=== PATIENT | male | born 1980 | race Caucasian/White ===

== ENCOUNTER 2018-05-31 11:39 | Emergency (ER) | payer MEDICAID, SELFPAY ==
[2018-05-31 11:41] VITALS: BP 121/80; PULSE 98; RESP 18; TEMP 36.4; O2SAT 98; BMI 22.9
--- NOTE | 2018-05-31 11:56 | ED.VISSUMM ---
- ER Visit Summary Date of Service: 05/31/18 Chief Complaint: I think I have a hemorrhoid History of Present Illness: The patient is a 37 M who presents with a painful hemorrhoid. He states he has never had one before. He noticed a painful lump near his anus about a week ago which has become progressively more painful and hard. No history of prior similar symptoms. No abdominal pain. No rectal bleeding. No fevers. Physical Examination: Afebrile vitals are normal Moist mucous membranes Heart regular rate No respiratory distress Abdomen soft nontender nondistended Patient does have an external hemorrhoid which is not thrombosed but is tender Test Results: Not indicated Emergency Department Course and Treatment: Patient advised on supportive care including stool softener for easier bowel movements. He was given a prescription for Anusol. He was advised to follow-up with his primary care physician. He understands to return for worsening symptoms and was discharged home. Treatment Plan: [] Disposition: Discharge Impression: External hemorrhoid This note was generated with [employer] dictation software. It may contain incorrect words, spelling, and punctuation that were not noted in review of the chart prior to signing ED Disposition - Plan for ED Patient: Chief Complaint: General Illness Referrals: Calixto Gr MD [Primary Care Provider] -
--- NOTE | 2018-05-31 11:58 | ED.DEP ---
ED Disposition - Plan for ED Patient: Chief Complaint: General Illness Instructions: ED Hemorrhoids Prescriptions: Hydrocortisone [Proctozone-Hc] 30 gm [place] BID #1 cream..g. Referrals: Calixto Gr MD [Primary Care Provider] -
--- NOTE | 2018-05-31 12:02 | DCINST.ED_ITS ---
ED Disposition - Plan for ED Patient: Chief Complaint: General Illness Instructions: ED Hemorrhoids Prescriptions: Hydrocortisone [Proctozone-Hc] 30 gm [place] BID #1 cream..g. Referrals: Calixto Gr MD [Primary Care Provider] -
== END 2018-05-31 12:15 | disposition home or self-care (01) ==
PROVIDERS: Emergency Provider Emergency Medicine; Family Provider Family Medicine; PCP Family Medicine
DX: K64.4 Residual hemorrhoidal skin tags (principal); Z72.0 Tobacco use
CPT/HCPCS: 99282

== ENCOUNTER 2018-07-05 17:25 | Emergency (ER) | payer MEDICAID, SELFPAY ==
[2018-07-05 17:26] VITALS: BP 108/71; PULSE 82; RESP 18; TEMP 36.6; O2SAT 98; BMI 23.0
--- NOTE | 2018-07-05 18:07 | RAD_ITS ---
STUDY: X-RAY - LUMBAR SPINE REASON FOR EXAM: Male, 37 years old. Low back pain TECHNIQUE: 3 view(s) of the lumbar spine were obtained. COMPARISON: None FINDINGS: Normal lumbar lordosis. There is no substantial scoliosis. There is a normal alignment of the vertebrae. Normal vertebral bodies and endplates. Normal disc space heights. The soft tissue structures are unremarkable. RAD/Lumbar Spine 2 or 3 Views IMPRESSION: Normal x-ray examination of the lumbar spine. Electronically Signed: Charlie Osorio MD at 18:53 EST , Service support ,
--- NOTE | 2018-07-05 18:09 | ED.VISSUMM ---
- ER Visit Summary Date of Service: 07/05/18 Chief Complaint: Back pain History of Present Illness: The patient is a 37 M who states that when he woke this morning he had lower back. He describes it as being centered. Denies any known trauma inciting event that would have resulted in pain. He denies any radicular symptoms. He denies any bowel or bladder dysfunction. No fever no rashes. He denies any IV drug use. No recent weight loss or weight gain. Physical Examination: Afebrile vital signs stable Gen: Well-nourished well-developed Head: Normocephalic atraumatic Eyes: Perrl EOMI ENT: TMs clear no rhinorrhea moist mucous membranes Neck: Supple no lymphadenopathy no JVD nontender CVS: Regular rate rhythm no murmurs normal S1-S2 Respiratory: No distress clear to auscultation bilaterally chest nontender Abdomen: Soft nontender nondistended normal bowel sounds no masses Back: Patient is tender to palpation in the lower lumbar spine both in the midline and in the paraspinal musculature particularly on the left. There is palpable spasm of the left paraspinal musculature Extremity: Nontender no edema Skin: Normal color no rash Neuro: alert orientated ?3 CN II-XII intact normal strength sensation reflexes antalgic gait Psych: Normal affect normal mood Test Results: L spine films were obtained. These were negative. Noted straightening of the curvature. Emergency Department Course and Treatment: Patient received Toradol and Norflex IM here. Oars report was performed. I will write for some [place] Motrin as well as Flexeril. He is to follow-up with primary care return if worsening or concerns. Impression: 1. Acute lumbosacral back pain and muscular spasm This note was generated with [employer] dictation software. It may contain incorrect words, spelling, and punctuation that were not noted in review of the chart prior to signing ED Disposition - Plan for ED Patient: Disposition: Home or Assisted Living Chief Complaint: Back Instructions: ED Spasm Back No Trauma Prescriptions: Hydrocodone Bitart/Apap 5-325 [[place] 5MG-325MG] 1 tab PO Q6H PRN PRN 3 Days #12 tab PRN Reason: Pain Ibuprofen [Motrin] 800 mg PO TID PRN PRN #20 tab PRN Reason: Pain Cyclobenzaprine [Flexeril] 10 mg PO TID PRN #15 tab PRN Reason: Muscle Spasm Additional Instructions: Please follow-up with your new primary care physician regarding your back pain.
[2018-07-05] MEDS: Orphenadrine 60 MG/2 ML Ampul IM (19:01)
[2018-07-05] MEDS: Ketorolac 60 MG/2 ML Vial IM (19:02)
[2018-07-05 19:31] VITALS: BP 113/78; PULSE 63; RESP 16; O2SAT 100
== END 2018-07-05 19:32 | disposition home or self-care (01) ==
PROVIDERS: Emergency Provider Emergency Medicine; Family Provider Family Medicine; PCP Family Medicine
DX: M54.5 Low back pain (principal); M62.830 Muscle spasm of back; Z72.0 Tobacco use
CPT/HCPCS: 72100; 96372; 99282

== ENCOUNTER 2019-02-09 20:44 | Emergency (ER) | payer OTHER, MEDICAID, SELFPAY ==
[2019-02-09 20:45] VITALS: BP 114/69; PULSE 80; RESP 18; TEMP 36.8; O2SAT 98; BMI 23.8
--- NOTE | 2019-02-09 21:37 | ED.VISSUMM ---
- ER Visit Summary Date of Service: 02/09/19 Chief Complaint: Headache History of Present Illness: The patient is a 38 M true migraine headaches. Patient states that he awoke this morning with but not because of his headache. He said he gets up early in the morning to go to work. He got up at 5 AM and a headache behind both eyes today. Says he took Excedrin Migraine he was feeling somewhat better than the headache came back worse at 4 PM. He denies any falls or trauma. He denies any fever or sinus drainage or congestion. He denies any history of intracranial bleeds. He has had headaches like this before. Physical Examination: Young male no acute distress. Darkened room. Vital signs are stable afebrile initial blood pressure 114/69. He does not look septic or toxic. HEENT exam pupils round reactive light. He is photophobic. No signs of trauma to his face or scalp. Extra motions are intact. No facial droop. Normal speech. Neck nontender no meningismus. Able to touch chin to chest. No lymphadenopathy. Lungs clear to auscultation bilaterally. Heart regular rhythm no murmur rate about 80. Abdomen soft and nontender. Moving all 4 extremities. Neurovascular intact. 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 Dorsi plantarflexion intact. Neurologically is awake and alert. His NIH score is 0. Fingertip to nose and [id number] all within normal limits. He has no focal neurological or sensory findings. He has a normal neurologic exam. Test Results: None Emergency Department Course and Treatment: Historically and clinically and by exam his headache appears to be a migraine. Will be treated with IV fluids, Toradol, Phenergan and Benadryl and reassess. Repeat exam at 22:50 PM patient is doing well. Headache is almost resolved. Neurologic exam remains normal. NIH is 0. Normal speech. No facial droop. 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 Normal fingertip to nose. He feels and clinically looks much better. Treatment Plan: Imitrex as needed. Fluids and rest. Return if worse. Follow-up as needed. Disposition: Discharge Impression: Acute cephalgia History of migraine headaches This note was generated with [employer] dictation software. It may contain incorrect words, spelling, and punctuation that were not noted in review of the chart prior to signing ED Disposition - Plan for ED Patient: Referrals: Hermann Hernandez MD [Primary Care Provider] -
[2019-02-09] MEDS: Ketorolac 30 MG/ML Syringe IV (21:58)
[2019-02-09] MEDS: 0.9% Normal Saline 1,000 ML 1000 ML IV (21:58)
[2019-02-09] MEDS: DiphenhydrAMINE 50 MG/ML Syringe 25 MG IV (21:59)
[2019-02-09] MEDS: proMETHazine 25 MG/ML Syringe 12.5 MG IV (21:59)
--- NOTE | 2019-02-09 23:11 | ED.DEP ---
ED Disposition - Plan for ED Patient: Disposition: Home or Assisted Living Instructions: ED Headache Migraine Prescriptions: Sumatriptan Succinate [Imitrex] 50 mg PO PRN PRN #10 tab PRN Reason: Headache Referrals: Hermann Hernandez MD [Primary Care Provider] - 3-5 Days if not improving Additional Instructions: Imitrex as needed. Excedrin Migraine as needed. Plenty of fluids and rest. Follow-up with your doctor if not improving return if worse.
[2019-02-09 23:39] VITALS: BP 118/76; PULSE 70; RESP 21; O2SAT 98
== END 2019-02-09 23:28 | disposition home or self-care (01) ==
PROVIDERS: Emergency Provider Emergency Medicine; Family Provider Family Medicine; PCP Family Medicine
DX: G43.909 Migraine, unspecified, not intractable, without status migrainosus (principal); Z72.0 Tobacco use
CPT/HCPCS: 96361; 96374; 96375; 99285; J7030; A4216

== ENCOUNTER 2019-09-20 15:58 | Emergency (ER) | payer MEDICAID, SELFPAY ==
[2019-09-20 15:59] VITALS: BP 137/74; PULSE 98; RESP 16; TEMP 36.8; O2SAT 99; BMI 24.4
--- NOTE | 2019-09-20 16:10 | ED.VISSUMM ---
- ER Visit Summary Date of Service: 09/20/19 Chief Complaint: Laceration History of Present Illness: The patient is a [address] Hernandez. Reports that just prior to coming to the emergency department he cut his right small finger on a piece of sheet metal at home. He denies any pain or paresthesias. He is right-hand dominant. His tetanus is up-to-date. Physical Examination: Vitals: Stable. Afebrile. General: Well-nourished and well-developed. Head: Normocephalic atraumatic. Neck: Supple, no lymphadenopathy. No JVD. Nontender. Cardiovascular: Regular rate and rhythm. No murmurs. Respiratory: No respiratory distress. Clear to auscultation bilaterally. Abdominal: Soft, nontender, nondistended, normal bowel sounds. No guarding, rebound, or peritoneal signs. Back: Nontender. Extremities: Distal phalanx of right small finger on the palmar surface shows a 1 cm superficial flap laceration with no active bleeding.. Skin: Normal color, no rash. Neurologic: Alert and oriented ?3. Cranial nerves II through XII are intact. Normal strength and sensation. Psych: Normal affect. Emergency Department Course and Treatment: I had a prolonged discussion with the patient that the skin from this flap is not viable tissue. It will be left in place to act as an anatomic Band-Aid. The wound was cleansed and a dressing was placed. Treatment Plan: Patient is instructed to keep the area clean and covered. Follow-up his primary care physician 1 week if not improving. Return to the emergency department for any worsening symptoms. Disposition: To home in improved and stable condition. Impression: 1. Laceration right small finger, 1 cm, not repaired. This note was generated with [employer] dictation software. It may contain incorrect words, spelling, and punctuation that were not noted in review of the chart prior to signing ED Disposition - Plan for ED Patient: Disposition: Home or Assisted Living Instructions: LACERATION, Small/superficial, Not sutured Referrals: Hermann Hernandez MD [Primary Care Provider] - 1 Week if not improving
[2019-09-20 16:19] VITALS: PULSE 92; RESP 16; O2SAT 98
== END 2019-09-20 16:21 | disposition home or self-care (01) ==
PROVIDERS: Emergency Provider Emergency Medicine; PCP Family Medicine
DX: S61.216A Laceration without foreign body of right little finger without damage to nail, initial encounter (principal); W26.8XXA Contact with other sharp object(s), not elsewhere classified, initial encounter; Y93.9 Activity, unspecified; Y92.009 Unspecified place in unspecified non-institutional (private) residence as the place of occurrence of the external cause; Z72.0 Tobacco use
CPT/HCPCS: 99282

== ENCOUNTER 2020-10-31 01:23 | Emergency (ER) | payer BC, MEDICAID, SELFPAY ==
[2020-10-31 01:23] VITALS: BP 156/99; RESP 82; TEMP 36.7; O2SAT 16; BMI 25.4
--- NOTE | 2020-10-31 01:27 | ED.VIS.GEN ---
History of Present Illness Chief Complaint: Upper Extremity Injury Informant: Patient Narrative: 40-year-old male presenting with left-sided neck and shoulder pain. He states this has been going on for about 6 months. He has not seen his primary care provider for this. Patient states he made an appointment for Thursday but does not feel he can tolerate the discomfort until Thursday. Patient has been taking ibuprofen which makes it tolerable. Patient states that when he wakes up in the morning his pain is the worst but after it loosens up in his shoulder and neck it feels better. He denies paresthesias currently but states he does get weakness in the morning upon awakening. This resolves in minutes. Patient denies chest pain or shortness of breath. Past Medical History - Allergies and Home Meds Allergies/Adverse Reactions: Allergies No Known Allergies Allergy (Verified 10/31/20 01:27) Primary Care Physician: Jose Storm DO [STAFF PHYSICIAN] - Hermann Hernandez MD [Primary Care Provider] - Prior records reviewed: Yes Past Medical History: - - Patient denies significant medical history. Surgical History: noncontributory Lives: Spouse/ Significant Other Smoking Status: Current every day smoker Alcohol: None Drugs: None Review of Systems General: Denies: Chills, Fever, Sweats Eyes: Denies: Visual changes - bilaterally, Diplopia ENT: Denies: Rhinorrhea, Sore throat Cardiovascular: Denies: Chest pain, Palpitations Respiratory: Denies: Dyspnea, Cough, Dyspnea on exertion Gastrointestinal: Denies: Abdominal pain, Nausea, Vomiting, Diarrhea, Melena, Hematochezia Genitourinary: Denies: Dysuria, Hematuria, Frequency Musculoskeletal: Reports: Neck pain - Left-sided neck pain, Extremity Pain - Left shoulder pain Skin: Denies: Rash, Abscess Neurological: Denies: Headache, Weakness Psych: Denies: Depression, Anxiety Physical Exam Vital Signs/Narrative: Vital Signs Temp Resp BP Pulse Ox 10/31/20 01:23 98.1 F 82 H 156/99 H 16 General: Well nourished, Well developed, No Acute Distress Head: Normocephalic, Atraumatic Eyes: Perrl, EOMI ENT: Moist mucous membranes, No rhinorrhea Neck: - - Mild tenderness to palpation left trapezius. No midline spinal deformities or step-off. No midline tenderness. Head turning to the right exacerbates pain in the left shoulder. Cardiovascular: Regular rate, Regular rhythm, No murmurs Respiratory: No distress, CTA bilaterally, Chest nontender Extremities: Tenderness - Tenderness to palpation of her left shoulder girdle. No pain in the clavicle. Full range of motion actively and passively. 5/5 motor strength. Left arm neurovascularly intact. Skin: Normal color, No rash Neurological: Alert, Oriented x3, Cranial nerves II-XII grossly intact Psychological: Normal affect, Normal Mood Diagnostic/Tx/Re-eval Clinical Impression(s) from Imaging Studies Cervical Spine X-Ray 10/31/20 01:33 IMPRESSION: Degenerative changes with mild reversal of the normal cervical lordosis Electronically Signed: Adarsh Hein DO at 2:06 EST Tel , Service support , Shoulder X-Ray 10/31/20 01:34 IMPRESSION: Normal x-ray examination of the shoulder. Electronically Signed: Adarsh Hein DO at 2:06 EST Tel , Service support , - Medical Decision Making Patient presenting with left shoulder pain as well as left-sided neck pain. Patient denies any significant injury and noted that this has gotten worse over the last 6 months. Patient was given Norflex, Toradol, prednisone. He had 4 view x-rays of the left shoulder which showed no acute bony abnormality or subluxation as interpreted by myself. X-rays of the cervical spine 5 views were obtained which show degenerative changes at C4, C5, C6 as interpreted by myself. Radiology does agree with both reads. I believe patient's pain in his shoulder is from cervical radiculopathy especially with the numbness he gets in certain positions. Patient will be sent home with Flexeril, Naprosyn, prednisone. Patient was given follow-up with Dr. Storm. He will make his appointment on Thursday for his regular doctor. Patient safe for discharge at this time. Impression: 1. Left shoulder pain 2. Cervical radiculopathy ED Disposition - Plan for ED Patient: Disposition: Home or Assisted Living Instructions: ED Radiculopathy, Cervical, ED Shoulder Pain, Uncertain Cause Prescriptions: Cyclobenzaprine HCl 10 mg PO Q8H PRN PRN #20 tab PRN Reason: pain Prescription Printed Naproxen [Naprosyn] 500 mg PO BID PRN #30 tab Prescription Printed predniSONE tablet 60 mg PO DAILY #15 tab Prescription Printed Referrals: Hermann Hernandez MD [Primary Care Provider] - Jose Storm DO [STAFF PHYSICIAN] -
--- NOTE | 2020-10-31 01:33 | RAD_ITS ---
STUDY: X-RAY - CERVICAL SPINE REASON FOR EXAM: Male, 40 years old. neck pain TECHNIQUE: 5 view(s) of the cervical spine were obtained. COMPARISON: None FINDINGS: Normal anterior atlantoaxial articulation. Normal odontoid process. There is reversal of the normal cervical lordosis. Degenerative disc disease noted at C4-5 and C5-6 The soft tissue structures are unremarkable. RAD/Cerv Spine 2 or 3 Views IMPRESSION: Degenerative changes with mild reversal of the normal cervical lordosis Electronically Signed: Adarsh Hein DO at 2:06 EST Tel , Service support ,
--- NOTE | 2020-10-31 01:34 | RAD_ITS ---
STUDY: X-RAY - LEFT SHOULDER REASON FOR EXAM: Male, 40 years old. shoulder pain TECHNIQUE: 4 view(s) of the shoulder. COMPARISON: None. FINDINGS: Normal glenohumeral articulation. Normal acromioclavicular joint. Normal acromion. Normal humeral head and visualized proximal humerus. The soft tissue structures are unremarkable. Normal visualized pulmonary apex. RAD/Shoulder min 2 Views IMPRESSION: Normal x-ray examination of the shoulder. Electronically Signed: Adarsh Hein DO at 2:06 EST Tel , Service support ,
[2020-10-31] MEDS: Orphenadrine 100 MG Tablet PO (01:55)
[2020-10-31] MEDS: Ketorolac 15 MG/ML Vial IM (01:55)
[2020-10-31] MEDS: predniSONE 20 MG Tablet 60 MG PO (02:43)
[2020-10-31 02:46] VITALS: BP 123/82; PULSE 75; RESP 16
== END 2020-10-31 02:49 | disposition home or self-care (01) ==
PROVIDERS: Emergency Provider Student in an Organized Health Care Education/Training Program; PCP Family Medicine
DX: M25.512 Pain in left shoulder (principal); M54.12 Radiculopathy, cervical region; F17.200 Nicotine dependence, unspecified, uncomplicated
CPT/HCPCS: 72040; 73030; 96372; 99282

== ENCOUNTER 2021-01-04 16:54 | Emergency (ER) | payer BC, MEDICAID, SELFPAY ==
[2021-01-04 16:55] VITALS: BP 139/103; PULSE 100; RESP 16; TEMP 36.8; O2SAT 96; BMI 24.8
--- NOTE | 2021-01-04 17:51 | EX.ED.UPPERE ---
HPI History of Present Illness Chief Complaint: Upper Extremity Injury Informant: patient Onset/Context/Timing Onset: Month(s) (6-7) Context: Gradual Onset Timing: Continuous Quality of Pain: Aching Location: left posterior neck and into L shoulder, upper arm, occasionally into hand Current Severity: Moderate Maximum Severity: Moderate Worsened by: nothing in particular Relieved by: temporarily by prednisone but nothing else helping Associated Symptoms Associated Symptoms: Positive for Parasthesia (in thumb and index finger); Negative for Weakness and Loss of Funtion Narrative Narrative: Patient has been having this pain in his neck and upper arm for some time now, he occasionally gets paresthesias into the thumb and index finger which is relatively new and worse today, he is asking for some help with this and a work note. He states he recently lost his job and his medical insurance, he was trying to get an MRI certified but has not been able to yet. He was put on prednisone 60 mg for 1 week, that did help temporarily several months ago when he was on it, however he felt like he withdrew from it when it ended. [facility] Medical History Hx of psychiatric care (~2012) Home Medications sumatriptan succinate 50 mg PO PRN PRN #10 tab 02/09/19 [Rx Last Taken Unknown] gabapentin 300 mg PO TID 30 Days #89 cap 01/04/21 [Rx Last Taken Unknown] Allergy/AdvReac Type Severity Reaction Status Date / Time No Known Allergies Allergy Verified 01/04/21 16:54 Surgical History (Updated 11/12/20 @ 08:14 by Vanessa Proctor) H/O splenectomy (~1990) Hx of hernia repair (~2018) Social History Smoking Status: Current every day smoker ROS ROS ED Constitutional Constitutional ED: Denies chills or fever(s) Musculoskeletal Musculoskeletal: Reports extremity pain; Denies neck pain Integumentary Denies Abrasions, rash or wounds Neurologic Neurologic: Reports paresthesias; Denies weakness EXAM Physical Exam Const Vital Signs: 01/04/21 16:55 Temperature 98.3 F Temperature Source Oral Pulse Rate 100 Respiratory Rate 16 Blood Pressure 139/103 H Blood Pressure Mean 115 Pulse Ox 96 Oxygen Delivery Method Room Air Positive well nourished and well developed General Appearance ED: well developed and NAD Neck full ROM and supple Back/Spine normal ROM and normal to inspection Neuro oriented x3, no focal motor deficits and no sensory deficits noted Neuro Narrative: Patient states paresthesias come and go and are not currently present Sensorium / Orientation: alert Motor Exam: strength 5/5 throughout Psych mental status grossly normal and thought process normal Skin no wounds Rashes: no rashes MDM MDM MDM Narrative Medical decision making narrative: Patient symptoms are consistent with cervical radiculopathy approximately C5-6. He has not been on gabapentin yet, I think would be reasonable to try that. He was given a prescription as well as an initial dose here and also referred to pain management as they may be able to offer some type of injection for this. Discharge Plan Triage Chief Complaint: Upper Extremity Injury ED Provider: Lalo Hernandez Dx/Rx/DC Orders Clinical Impression: Cervical radiculopathy Instructions: ED Radiculopathy, Cervical Prescriptions: New gabapentin 300 mg capsule 300 mg PO TID 30 Days Qty: 89 RF: 0 No Action sumatriptan succinate 50 MG tablet 50 mg PO PRN PRN (Reason: Headache) Qty: 10 RF: 0 Stand Alone Forms: ED Work / School Excuse Primary Care Provider: Hermann Hernandez Referrals: Cheryle Rodriguez MD [STAFF PHYSICIAN] - (call for appt) Hermann Hernandez MD [Primary Care Provider] - Disposition Disposition: Home, self care
[2021-01-04 18:02] VITALS: RESP 17
[2021-01-04] MEDS: Gabapentin 600 MG Tablet 300 MG PO (18:05)
== END 2021-01-04 18:11 | disposition home or self-care (01) ==
LOC: ED 18:09
PROVIDERS: Emergency Provider Emergency Medicine; PCP Family Medicine
DX: M54.12 Radiculopathy, cervical region (principal); F17.200 Nicotine dependence, unspecified, uncomplicated
CPT/HCPCS: 99282

== ENCOUNTER → 2021-01-15 17:04 | Outpatient (CLI) | payer BC, MEDICAID, SELFPAY ==
[2021-01-04 16:55] VITALS: BMI 24.8
--- NOTE | 2021-01-15 17:06 | MRI_ITS ---
STUDY: MRI CERVICAL SPINE WITHOUT CONTRAST REASON FOR EXAM: Male, 40 years old. LEFT shoulder, arm and hand pain TECHNIQUE: Standardized fat and water weighted pulse sequences were obtained in the sagittal and axial planes. COMPARISON: None FINDINGS: Normal foramen magnum and brainstem-cervical cord junction. Normal craniovertebral junction. Normal anterior atlantoaxial articulation. Normal odontoid process. There is reversal of the normal cervical lordosis. Disc desiccation is present at all levels. C2-3: Normal endplates. Normal disc height and morphology. Normal central canal and intervertebral neural foramina. C3-4: Normal endplates. Normal disc height and morphology. Normal central canal and intervertebral neural foramina. C4-5: Normal endplates. Mild disc space narrowing is present without bulging or herniation of the disc. Normal central canal and intervertebral neural foramina. C5-6: Mild to moderate disc space narrowing is present with a diffuse disc osteophyte complex contributing to mild compression anterior aspect of the cord and mild central canal stenosis. Normal right neural foramen. Mild left foraminal stenosis is present. C6-7: Normal endplates. Normal disc height and morphology. Normal central canal and intervertebral neural foramina. C7-T1: Normal endplates. Normal disc height, signal and morphology. Normal central canal and intervertebral neural foramina. Normal cervical cord. There is no demonstrated cervical cord syrinx cavity. Normal visualized soft tissue structures. MRI/Spine Cervical (Routine) IMPRESSION: 1. Multilevel degenerative changes, as described above. 2. Mild central canal stenosis with compression anterior aspect of the cord at C5-C6 secondary to a disc osteophyte complex Electronically Signed: Shawn Greenwood MD at 23:54 EDT , Service support ,
--- NOTE | 2021-01-15 17:10 | RAD_ITS ---
STUDY: X-RAY - ORBITS REASON FOR EXAM: Male, 40 years old. Pre-MRI clearance -- Hx of metal to eyes TECHNIQUE: 2 view(s) of the orbits were obtained. COMPARISON: None. FINDINGS: Normal bilateral orbits without a metallic orbital foreign body. Normal visualized facial bones. Normal paranasal sinuses. The soft tissue structures are unremarkable. RAD/Orbits for Foreign Body IMPRESSION: No demonstrated metallic orbital foreign body. The patient is cleared for an MRI examination. Electronically Signed: Shawn Greenwood MD at 17:56 EDT , Service support ,
== END ==
PROVIDERS: PCP Family Medicine; Referring Provider Orthopaedic Surgery; Visit Provider Orthopaedic Surgery
DX: M54.12 Radiculopathy, cervical region (principal); M48.02 Spinal stenosis, cervical region; M25.78 Osteophyte, vertebrae
CPT/HCPCS: 70030; 72141

== ENCOUNTER 2021-01-23 10:40 | Emergency (ER) | payer BC, MEDICAID, SELFPAY ==
[2021-01-18 14:59] VITALS: BMI 24.8
[2021-01-23 10:41] VITALS: BP 131/87; PULSE 88; RESP 16; TEMP 36.3; O2SAT 96; BMI 25.5
--- NOTE | 2021-01-23 10:47 | EDS_ITS ---
HPI History of Present Illness Chief Complaint: General Illness Narrative Narrative: Patient presenting for evaluation secondary to an episode of lightheadedness. Patient states that he felt well yesterday, felt well early this morning. He states that he was at work, and had a sudden onset of severe lightheadedness. He describes it as a feeling as if he was going to pass out, felt as if my legs were filled up with water and the rest of my body was hit with needles. He denies that there is any associated chest pain or shortness of breath or palpitations with this. Is never really had any prior similar events. Denies any history of cardiovascular disease hypertension hyperli pidemia. He denies any family history of arrhythmia or sudden cardiac . No DVT or PE risk factors. Patient does get treatment for a bulging disc in his neck and has been on gabapentin over the course of about the last 2 weeks, states that on initiation of that medication he felt a feeling of dizziness but this is distinctly different than that. 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 Review of systems otherwise negative. PFSH PFS Medical History Hx of psychiatric care (~2012) Home Medications sumatriptan succinate 50 mg PO PRN PRN #10 tab 02/09/19 [Rx Last Taken Unknown] gabapentin 300 mg PO TID 30 Days #89 cap 01/04/21 [Rx Last Taken Unknown] Allergy/AdvReac Type Severity Reaction Status Date / Time No Known Allergies Allergy Verified 01/23/21 10:43 Surgical History H/O splenectomy (~1990) Hx of hernia repair (~2018) Social History Smoking Status: Current every day smoker tobacco type: cigarettes ROS ROS ED Constitutional Constitutional ED: Denies chills or fever(s) ENT ENT ED: Denies rhinorrhea Cardiovascular Cardiovascular: Reports other Details: Lightheadedness ; Denies chest pain Respiratory/Chest Respiratory/Chest: Denies cough or dyspnea Gastrointestinal Gastrointestinal: Denies abdominal pain, diarrhea, nausea or vomiting Genitourinary Genitourinary ED: Denies dysuria or hematuria Musculoskeletal Musculoskeletal: Denies back pain Integumentary Denies rash Neurologic Neurologic: Denies paresthesias or weakness Psychiatric Psychiatric: Denies depression Endocrine Endocrinology: Denies fatigue Allergic/Immunologic Allergic/Immunologic ED: Denies urticaria EXAM Physical Exam Const Vital Signs: 01/23/21 10:41 01/23/21 10:50 01/23/21 11:34 Temperature 97.3 F L Temperature Source Temporal Pulse Rate 88 Pulse Rate [Lying] 70 Pulse Rate [Sitting] 82 Pulse Rate [Standing] 77 Respiratory Rate 16 Respiratory Effort Normal Non-Labored Blood Pressure 131/87 H Blood Pressure [Lying] 107/78 Blood Pressure [Sitting] 116/84 H Blood Pressure [Standing] 117/84 H Blood Pressure Mean 101 Blood Pressure Mean [Lying] 87 Blood Pressure Mean [Sitting] 94 Blood Pressure Mean [Standing] 95 Pulse Ox 96 Oxygen Delivery Method Room Air Positive well nourished and well developed General Appearance ED: well developed and NAD HEENT Reports moist mucous membranes Negative for trauma or tenderness Eyes EOMs intact bilaterally Neck no lymphadenopathy, supple and no JVD Chest Wall inspection of chest normal Resp normal respiratory effort and clear to auscultation bilaterally Cardio regular rate, regular rhythm, no murmurs and peripheral pulses 2+ throughout GI normal to inspection, nondistended, normoactive bowel sounds, non-tender and no masses Palpation: soft Back/Spine normal to inspection Extremity normal to inspection General Extremety ED: Negative for tenderness Neuro oriented x3 and no sensory deficits noted Sensorium / Orientation: alert Motor Exam: strength 5/5 throughout Psych mental status grossly normal Skin no rashes or lesions noted MDM MDM MDM Narrative Medical decision making narrative: Patient presented secondary to lightheadedness. IV established laboratory studies were obtained. He was given a liter normal saline. EKG was found to be unremarkable. CBC chemistry and troponin found to be unremarkable. Patient had stable vitals in the emergency department, he is negative per the [place] syncope rule, I do not feel that he requires admission or further observation. Patient likewise does not seem to be at risk for pulmonary embolism I do not think that this is something that requires further work-up, he is capital PE RC negative. Patient will be discharged at the conclusion of his IV fluids. Follow-up with primary care as needed. Lab Data Labs: Laboratory Results - last 24 hr 01/23/21 01/23/21 11:05 11:05 WBC 6.6 RBC 4.23 L Hgb 14.0 Hct 40.4 MCV 95.5 H MCH 33.1 H MCHC 34.7 RDW Std Deviation 44.6 H RDW Coeff of [place] 12.7 Plt Count 168 MPV 8.9 Immature Gran % (Auto) 0.300 Neut % (Auto) 65.6 Lymph % (Auto) 25.3 Mcnairy % (Auto) 5.8 Eos % (Auto) 2.7 Baso % (Auto) 0.3 Absolute Neuts (auto) 4.3 Absolute Lymphs (auto) 1.66 Nucleated RBC % 0 Sodium 137 Potassium 4.2 Chloride 107 Carbon Dioxide 29.0 Anion Gap 1 L BUN 10 Creatinine 0.93 Estim Creat Clear Calc 114.70 Est GFR (MDRD) Af Amer 116 Est GFR (MDRD) Non-Af 96 BUN/Creatinine Ratio 10.7 Glucose 97 Calcium 8.9 Troponin I < 0.015 EKG Initial EKG: Attestation: I personally reviewed and interpreted this EKG as follows: (Sinus rhythm at [address] segments normal T waves normal CA and QTc intervals no evidence of WPW or Brugada morphology no evidence of right ventricular strain, no acute ischemia or arrhythmia.) Discharge Plan Triage Chief Complaint: General Illness ED Provider: Artur Stapleton Dx/Rx/DC Orders Clinical Impression: Light-headedness Instructions: ED Dizziness, Uncertain Cause Prescriptions: No Action sumatriptan succinate 50 MG tablet 50 mg PO PRN PRN (Reason: Headache) Qty: 10 RF: 0 gabapentin 300 mg capsule 300 mg PO TID 30 Days Qty: 89 RF: 0 Primary Care Provider: Hermann Hernandez Referrals: Hermann Hernandez MD [Primary Care Provider] - As Needed Disposition Disposition: Home, self care
--- NOTE | 2021-01-23 10:56 | EKG12_ITS ---
Test Reason : GEN ILLNESS Blood Pressure : / mmHG Vent. Rate : 060 BPM Atrial Rate : 060 BPM P-R Int : 166 ms QRS Dur : 094 ms QT Int : 418 ms P-R-T Axes : 069 038 060 degrees QTc Int : 418 ms Normal sinus rhythm Normal ECG Confirmed by BOB DE, ABRAHAM ([id number]), editor in chief newspaper JERI CHAN ([id number]) on 01/24/2021 11:28:20 AM Referred By: AMY/JAZLYN Confirmed By:ABRAHAM ROJAS MD
[2021-01-23 11:12] LABS: Absolute Lymphocyte Count 1.66 X10^3/uL (0.83-4.51); Absolute Neutrophil Count 4.3 X10^3/uL (2.0-7.7); Basophil# 0.02 X10^3/uL; Basophil% 0.3 % (0-1); Eosinophil# 0.18 X10^3/uL; Eosinophils% 2.7 % (0-5); Hematocrit 40.4 % (40-54); Lymphocyte # 1.66 X10^3/ul (0.83-4.51); Lymphocyte % 25.3 % (19-41); Mean Corp Hgb Conc 34.7 g/dL (32-36); Mean Corpuscular Hgb 33.1 pg (27.0-32.0); Mean Corpuscular Volume 95.5 fL (80-94); Mean Platelet Vol. 8.9 fl (6.2-12.0); Monocyte# 0.38 X10^3/uL; Monocyte% 5.8 % (0-10); NRBC Flagged by Analyzer 0 % (0-5); Neutrophil # 4.31 X10^3/uL (2.7-7.7); Neutrophil % 65.6 % (47-70); Platelet Count 168 K/mm3 (150-450); RBC Distribution Width CV 12.7 % (11.6-14.6); RBC Distribution Width SD 44.6 fl (35.1-43.9); Red Blood Count 4.23 M/mm3 (4.6-6.2); White Blood Count 6.6 K/mm3 (4.4-11.0)
[2021-01-23] MEDS: 0.9% Normal Saline 1,000 ML 1000 ML IV (11:13)
[2021-01-23 11:28] LABS: Anion Gap 1 (5-15); BUN 10 mg/dL (7-18); BUN/Creat Ratio 10.7 RATIO (10-20); Calcium,Total 8.9 mg/dL (8.5-10.1); Chloride 107 mmol/L (98-107); Creatinine, Serum 0.93 mg/dL (0.70-1.30); EST Glomerular Filtration Rate 96 mL/min (>60); Est Glom Filt Rate - Afr Amer 116 mL/min (>60); Glucose 97 mg/dL (74-106); Potassium 4.2 mmol/L (3.5-5.1); Sodium Level 137 mmol/L (136-145)
[2021-01-23 11:34] VITALS: BP 107/78; BP 116/84; BP 117/84; PULSE 70; PULSE 77; PULSE 82
[2021-01-23 12:09] VITALS: BP 108/70; PULSE 79; RESP 16; O2SAT 98
== END 2021-01-23 12:11 | disposition home or self-care (01) ==
PROVIDERS: Emergency Provider Emergency Medicine; PCP Family Medicine
DX: R42 Dizziness and giddiness (principal); F17.210 Nicotine dependence, cigarettes, uncomplicated
CPT/HCPCS: 80048; 84484; 85025; 93005; 96360; 99284; J7030; A4216

== ENCOUNTER 2021-09-10 11:12 | Observation (INO) | payer BC, MEDICAID, SELFPAY ==
[2021-01-18 14:59] VITALS: BMI 24.8
--- NOTE | 2021-09-02 09:10 | EKG12_ITS ---
Test Reason : PREOP Blood Pressure : / mmHG Vent. Rate : 079 BPM Atrial Rate : 079 BPM P-R Int : 166 ms QRS Dur : 082 ms QT Int : 376 ms P-R-T Axes : 076 051 074 degrees QTc Int : 431 ms Normal sinus rhythm Normal ECG Confirmed by TISHA DE, IRAJ ([id number]), tape editor CAROL SMITH ([id number]) on 09/06/2021 10:29:25 AM Referred By: Jose Storm Confirmed By:IRAJ GILES MD
[2021-09-02 09:27] LABS: Absolute Lymphocyte Count 1.75 X10^3/uL (0.83-4.51); Absolute Neutrophil Count 3.2 X10^3/uL (2.0-7.7); Basophil# 0.03 X10^3/uL; Basophil% 0.5 % (0-1); Eosinophil# 0.13 X10^3/uL; Eosinophils% 2.4 % (0-5); Hematocrit 43.8 % (40-54); Hemoglobin 15.2 g/dL (13.0-16.5); Lymphocyte # 1.75 X10^3/ul (0.83-4.51); Lymphocyte % 31.9 % (19-41); Mean Corp Hgb Conc 34.7 g/dL (32-36); Mean Corpuscular Hgb 32.8 pg (27.0-32.0); Mean Corpuscular Volume 94.4 fL (80-94); Mean Platelet Vol. 9.2 fl (6.2-12.0); Monocyte# 0.35 X10^3/uL; Monocyte% 6.4 % (0-10); NRBC Flagged by Analyzer 0 % (0-5); Neutrophil # 3.21 X10^3/uL (2.7-7.7); Neutrophil % 58.6 % (47-70); Platelet Count 144 K/mm3 (150-450); RBC Distribution Width CV 12.5 % (11.6-14.6); RBC Distribution Width SD 43.1 fl (35.1-43.9); Red Blood Count 4.64 M/mm3 (4.6-6.2); White Blood Count 5.5 K/mm3 (4.4-11.0)
[2021-09-02 10:01] LABS: Anion Gap 6 (5-15); BUN 13 mg/dL (7-18); BUN/Creat Ratio 12.3 RATIO (10-20); Calcium,Total 9.2 mg/dL (8.5-10.1); Chloride 108 mmol/L (98-107); Creatinine, Serum 1.06 mg/dL (0.70-1.30); EST Glomerular Filtration Rate 83 mL/min (>60); Est Glom Filt Rate - Afr Amer 100 mL/min (>60); Glucose 81 mg/dL (74-106); Potassium 3.7 mmol/L (3.5-5.1); Sodium Level 142 mmol/L (136-145)
[2021-09-02 10:11] LABS: Magnesium 2.3 mg/dL (1.6-2.6)
[2021-09-02 10:44] LABS: HIV - WCH Non-Reactive (Nonreactive); Hepatitis B Surface Antibody Non-Reactive
[2021-09-02 10:51] LABS: Hepatitis C Antibody REACTIVE (Nonreactive)
[2021-09-03 17:38] LABS: Hepatitis A AB, Total Negative (Negative)
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
[2021-09-10] VITALS (16 sets, daily range): BP systolic 87–130; BP diastolic 59–80; PULSE 61–93; RESP 16–18; TEMP 36.2–36.7; O2SAT 94–100; BMI 23.3
[2021-09-10] MEDS: Lactated Ringers 1,000 ML 15 ML IV ×2 (06:20→09:30)
[2021-09-10] MEDS: dexAMETHasone 10 MG/ML Vial 8 MG IV (06:21)
[2021-09-10] MEDS: Acetaminophen 500 MG Tablet 1000 MG PO ×2 (06:25→18:27)
--- NOTE | 2021-09-10 07:30 | DISC_PTH ---
PATIENT: CHAU ELLISON III LOC: MS2 U#:[id number] AGE/SX: 41/M ROOM: [facility] RE09/10/[address]: Dr. Taz Garcia DO : 1980 BED: 1 DIS: 09/11/2021 SPEC #: [id number] RECD: 09/10/21 12:48 STATUS: DAYANARA REKaterina #: [id number] HONORIO: 09/10/21 07:[address]: Jose Storm DEPT: SURGICAL PATHOLOGY RECD BY: Martine Bond ENTERED: 09/10/21 13:05 SP TYPE: DISC OTHR DR: MD Dr. Hermann Soria MD Tissues: Intervertebral disc, NOS Procedures: Surgery Specimen Level III HEADER OPERATION: ERAS, anterior cervical disc fusion C5-6, C6-7 PRE-OP DIAGNOSIS: Herniated nucleus pulposus, cervical TISSUE SUBMITTED: Cervical disc C5-6 and C6-7 MICROSCOPIC DIAGNOSIS Cervical disc C5-6 and C6-7: Fragments of fibrocartilaginous tissue and fibroconnective tissue with focal degenerative changes. TOÑA:jimmie 09/11/2021 MICROSCOPIC DESCRIPTION Slides are reviewed. GROSS DESCRIPTION Received in fixative is one container labeled with the patient's name and designated cervical disc C5-6 and C6-7. The specimen consists of multiple pieces of rodriguez, indurated tissue that in aggregate measure 4 x 5 x 1.5 cm. Focusing Machine Operator tissue is submitted in two cassettes. / TOÑA:jimmie 09/10/2021 TC:5 CPT: 12248
--- NOTE | 2021-09-10 08:00 | RAD_ITS ---
STUDY: X-RAY - CERVICAL SPINE REASON FOR EXAM: Male, 41 years old. ANTERIOR DISC FUSION C5-6, C6-7,LEFT TECHNIQUE: 1 view(s) of the cervical spine were obtained. COMPARISON: None FINDINGS: The localization instrument is seen along the anterior aspect of the C6 vertebrae overlying the superior endplate. RAD/Spine 1 View Any Level IMPRESSION: The tip of the localization instrument is seen along the anterior superior aspect of the C6 vertebrae. Electronically Signed: Enrico Guerra MD at 8:36 EST , Service support ,
--- NOTE | 2021-09-10 08:08 | RAD_ITS ---
STUDY: X-RAY - CERVICAL SPINE REASON FOR EXAM: Male, 41 years old. Anterior disc fusion C5-6, C6-7left TECHNIQUE: 1 view(s) of the cervical spine were obtained. COMPARISON: None FINDINGS: The localization instrument is seen along the anterior aspect of the C5-C6 disc. RAD/Spine 1 View Any Level IMPRESSION: The localization instrument is within the anterior aspect of the C5-C6 disc. Electronically Signed: Enrico Guerra MD at 13:15 EST , Service support ,
[2021-09-10] MEDS: THROMBIN (RECOMBINANT) 20,000 UNIT VIAL 20000 UNIT TOPICAL (08:53)
[2021-09-10] MEDS: Heparin 10,000 UNITS/10 ML Vial 10000 UNITS (08:53)
[2021-09-10 10:05] LABS: Bedside Glucose 67 mg/dL (70-110)
--- NOTE | 2021-09-10 10:45 | RAD_ITS ---
STUDY: X-RAY - CERVICAL SPINE REASON FOR EXAM: Male, 41 years old. FUSION C5-6, 6-7 TECHNIQUE: 1 view(s) of the cervical spine were obtained. COMPARISON: Comparison is made with prior radiograph done earlier today. FINDINGS: The patient is status post anterior fusion with plate and screw fixation device and disc placement at the C5-C6 and C6-C7 levels. RAD/Spine 1 View Any Level IMPRESSION: Status post anterior fusion and prosthetic disc placement at the C5-C6 and C6-C7 levels. Electronically Signed: Enrico Guerra MD at 15:25 EST , Service support ,
--- NOTE | 2021-09-10 11:26 | OP.PCM_ITS ---
Report of Operation Date of Procedure: 09/10/21
--- NOTE | 2021-09-10 11:26 | PCM.OPRPT ---
Report of Operation Date of Procedure: 09/10/21
--- NOTE | 2021-09-10 11:28 | OP.PCM_ITS ---
Report of Operation Date of Procedure: 09/10/21 Description of Surgical Findings:: Preoperative diagnosis: Left C7 and C6 radiculopathy secondary to foraminal stenosis C6-7 and C5-6 Postoperative diagnosis: The same Procedures: #1 anterior cervical fusion C6-7 CPT code 54647 #2 application of spine plate C5-C7 CPT code 57835/59 #3 anterior cervical interbody fusion C5-6 CPT code 59701/51 #4 insertion of titanium cage C6-7 CPT code 82401 #5 insertion of titanium cage C5-6 CPT code 68849/51 Surgeon: Dr. Storm Tape Cutting Machine Operator: Barby TABOR Anesthesia: General endotracheal anesthesia administered by [facility] EBL: Less than 30 cc plus BMA of 60 cc Drains: 1/4 inch [place] Complications: None Procedure: Patient was taken to the OR where he was placed in the supine position on the operating table. He was then placed under general endotracheal anesthesia. Lynch catheter was inserted. Neuro monitoring placed there are leads in the patient. A preoperative x-ray was taken with a needle marker and placed to assure that I would start the incision at the correct level. It was marked with a very small laceration using the end of another needle. The right crest and the neck were then prepped and draped in standard fashion. We obtained our bone marrow aspirate first from the right iliac crest. Using a Jamshidi needle the needle was inserted through a small puncture incision using the end of 15 blade and that was then tamped into the bone deep enough to obtain BMA. 60 cc of BMA were easily obtained. This was handed off to the electrophysiology technician in the room that would spin it down from the other cells concentrate the stem cells 8-10 times and given back to us on the OR table. I then made the disc incision on the cervical spine at the predetermined level I curved it from the midline to the edge of the right sternocleidomastoid muscle. Subcutaneous tissues were incised the length of the incision. I then undermined the subcutaneous tissues off of the platysma's cephalad and caudad. Retaining retractors were then put in place and split the platysma longitudinally in line with its fibers using tissue scissors I then was able to identify the plane between the strap muscles and the sternocleidomastoid strap muscles and the tr achea and esophagus were then retracted to the left carotid which was identified to the right given us good access to the precervical fascia I then opened the precervical fascia over the disc space thought to be C5-6. A needle marker was put in place and an intraoperative x-ray was taken to confirm that we were indeed at C5-6. We moved down 1 level to C6-7 and marked it with cautery. I then cauterized the longus coli muscles on either side of the disc base levator then gently off of the disc base with an elevator. The endless belt finisher retractors were then put in place given his good access to the anterior disc at C6-7. I cut the anterior anal annulus with a 15 blade removed that with pituitary rongeurs and removed more nucleus from within the disc base with pituitary rongeurs. I also used angled curettes to remove the cartilage off both endplates and the remaining and posterior annulus note that he had known foraminal stenosis on the left side using the samra bur of the used technique whereby I would burred the uncinate process about the instillation of cold saline this was done repeatedly until it was a very thin shell I then used small angled curettes to remove the shell brought off of the base of the C7 nerve root. Notably were protected throughout the procedure with neuro monitoring. I then checked the foramen was with a nerve hook was found to be quite open. I then removed the remaining cartilage off the endplates with curettes used a bur to expand the posterior aspect just a bit to make more room for the cage. We used the larger of the 2 cage sizes available that was 8 mm tall. This was 6 and 16-1/2 mm wide and 14 mm deep with a 7 degree angle then filled the cage with spongy demineralized bone matrix that was soaked in the patient's current concentrated stem cells mentioned earlier. This was then tamped into place with anesthesia pulling on the head and countersunk 2 to 3 mm. I then moved over instrumentation next level which would be C5-6. Again I cauterized the coli muscles on either side but the endless belt finisher retractors in place giving us good access to the space at C5-6 anteriorly. I then cut the anterior annulus with a 15 blade and removed it and removed more nucleus from within the disc base with the rongeurs. Note that he had some significant spurring anteriorly this was removed with double-action rongeurs and a samra bur then continue to remove nucleus and annulus all the way back to near the posterior longitudinal ligament. Also the cartilage was removed off the endplates. Cannot open the foramen on the left side using the samra bur technique that I described earlier followed by the instillation of cold saline. It was done repeatedly until it was a thin shell that was then removed with small curettes. This decompressed the base of the C6 nerve root on the left side. This level required a 7 mm cage after the trial then filled it again with the demineralized bone matrix that was spongy soft and the patient stem cells and countersunk into the space 2 to 3 mm. A 45 mm plate was used and anteriorly. Note that it was a 6-hole plate and we did add a little lordosis to it with the plate [place]. I once entered a anchoring pin was put in on 1 side at C5-6 followed by the use of an all on the opposite side of C6 that is the left to punch a hole and enter with a 16mm screw this was done at the other 4 corners and the pin was removed and then another 60 mm screw was inserted there given us a total of six 16mm screws. There were 2 in the C5 doing to C6 into into C7. Construct was then viewed with a lateral x-ray was found be quite satisfactory with good position of the plate the screws and both cages amnionic membrane was placed over the plate to prevent adhesions to the trachea and the esophagus. We then began closure after first placing a 1/[address] [place] in [address] the platysma was closed in running fashion with 5-0 Vicryl final closure subcutaneous tissues in interrupted fashion with 5-0 Vicryl a safety pin was placed through the drain to prevent suction into the wound and sterile dressings were applied. Patient was then recovered in the OR moved to his hospital bed and taken to recovery in sat isfactory condition. This is the end of operative summary on Justin Sauceda III. This is Dr. Storm dictating.
[2021-09-10] MEDS: dexAMETHasone 4 MG/ML Vial IV ×2 (12:31→17:55)
--- NOTE | 2021-09-10 14:33 | SUR.PHASEI ---
Dr. Storm paged at [phone] and [phone]. No call back. This nurse called office and spoke with Barby Nash NP regarding patient not being able to tolerate vance catheter. Order given to remove vance at this time. Patient tolerated removal however was uncomfortable and this nurse noted white, thick drainage on catheter during removal. Urine was yellow at insertion and now is pale yellow upon removal of catheter.
[2021-09-10] MEDS: oxyCODONE 5 MG Tablet PO ×2 (15:55→21:51)
[2021-09-10] MEDS: Cefazolin 1 GM/50 ML BAG IV (16:48)
[2021-09-10] MEDS: Morphine 4 MG/ML Syringe IV (19:17)
[2021-09-10] MEDS: Lactated Ringers 1,000 ML 100 ML IV (19:19)
--- NOTE | 2021-09-10 19:29 | PCM.PN.HOSP ---
Subjective Subjective Patient postoperatively does complain of some sore anterior neck and throat, requesting Jell-O as he notes the cold sensation going down his throat feels better and helps improve his discomfort. Patient reports upper extremity and lower extremity sensation intact able to move both upper and lower extremity as well. Patient denies fevers, chills, nausea, emesis, abdominal pain, chest pain or dyspnea. Objective Data Objective Data Vital Signs: Vital Signs Temp Pulse Resp BP Pulse Ox 98 F 93 16 130/80 H 96 09/10/21 19:05 09/10/21 19:05 09/10/21 19:05 09/10/21 19:05 09/10/21 19:05 Oxygen Flow Rate (L/min) 2 Oxygen Delivery Method Room Air Weight: 167 lb 8.821 oz Body Mass Index (BMI) 23.3 Intake & Output: Intake and Output for Last 24 Hours 09/08/21 09/09/21 09/10/21 23:59 23:59 23:59 Intake Total 1265 / 1265 Output Total 850 / 850 Balance 415 / 415 Lab / Micro Data Result Diagrams: 09/02/21 09:01 09/02/21 09:01 Labs: Laboratory Results - last 24 hr 09/10/21 05:54: POC Glucose 67 L Micro: Microbiology 09/02/21 09:01 Swab (Method) Nasal Screen MRSA/MSSA - Final Radiography Diagnostic Testing: Radiology Impression Spine X-Ray 09/10/21 08:00 IMPRESSION: The tip of the localization instrument is seen along the anterior superior aspect of the C6 vertebrae. Electronically Signed: Enrico Guerra MD at 8:36 EST , Service support , Spine X-Ray 09/10/21 08:08 IMPRESSION: The localization instrument is within the anterior aspect of the C5-C6 disc. Electronically Signed: Enrico Guerra MD at 13:15 EST , Service support , Spine X-Ray 09/10/21 10:45 IMPRESSION: Status post anterior fusion and prosthetic disc placement at the C5-C6 and C6-C7 levels. Electronically Signed: Enrico Guerra MD at 15:25 EST , Service support , Physical Exam Narrative Physical Examination: General: Awake, alert, oriented x 3 and cooperative, seated upright in medical surgical bed in no apparent distress. Skin: Normal color, normal turgor, no icterus, no cyanosis, status post recent OR with anterior neck dressing in place, no drainage. HEENT: AT/NC, EOMI, PERRLA, mildly dry MM, anterior neck with dressing in place, no drainage Lungs: CTA bilaterally, moderate effort, mild decrease BL bases, no rales, ronchi or wheezing. Heart: Regular rate and rhythm; no gallop, rub audible. Abdomen: Soft, NTTP, ND, normal BS, no obvious evidence of HSM. Extremities: No cyanosis, clubbing, or edema. Neurological: Patient awake, alert, oriented as noted, cognitive function intact; pupils equally reactive to light and accommodation, cranial nerves II-XII grossly normal, moving all 4 extremities, no focal deficits, strength limited given recent OR with cervical intervention. Psychiatric: Affect appears fatigued, mildly uncomfortable, no acute evidence of depressive or anxiety feelings. Assessment & Plan Assessment/Plan (1) Neural foraminal stenosis of cervical spine: (2) Radiculopathy affecting upper extremity: PLAN: #1. Severe cervical radiculopathy with foraminal stenosis: Failed conservative therapies and treatments, admitted per Dr. Strom for planned left C7-C6 anterior cervical fusion, application spine plate C5-C7, anterior cervical interbody fusion C5-C6, insertion titanium cage C5-7, post-operative pain management, bowel regimen, DVT Prophylaxis, PT/OT/CM per Orthopedic surgery discretion. #2. Anxiety and depression: We will continue patient home bupropion regimen. #3. Former tobacco use: Encourage continued tobacco cessation. #4. History of migraine headaches: Patient triptan continue as needed per primary service. #5. History of hepatitis C: Reported in history, patient notes this was secondary to tattoos and he has undergone treatment, encourage continued outpatient follow-up with GI. #6. Former tobacco use: Encourage continued tobacco cessation. #7. GERD: We will maintain on famotidine. #8. DVT prophylaxis: SCDs, chemoprophylaxis per primary service discretion given recent OR. Charges/Coding Visit Charges Inpatient E&M: 72129 [facility] H[facility] L3
[2021-09-10] MEDS: Famotidine 20 MG Tablet PO (21:51)
--- NOTE | 2021-09-10 22:57 | PCS.PANDOC ---
PANDEMIC DOCUMENTATION INITIATED: Date: 04/15/2021 Time: 190
[2021-09-11] MEDS: Cefazolin 1 GM/50 ML BAG IV (00:43)
[2021-09-11] MEDS: Zolpidem Tartrate 5 MG Tablet PO (00:44)
[2021-09-11] MEDS: dexAMETHasone 4 MG/ML Vial 2 MG IV ×2 (00:44→04:43)
[2021-09-11 00:48] VITALS: BP 111/73; PULSE 77; RESP 16; TEMP 36.7; O2SAT 96
[2021-09-11] MEDS: Morphine 4 MG/ML Syringe IV (04:34)
[2021-09-11] MEDS: Acetaminophen 500 MG Tablet 1000 MG PO (04:35)
[2021-09-11 04:37] VITALS: BP 115/86; PULSE 91; RESP 16; TEMP 36.4; O2SAT 99
--- NOTE | 2021-09-11 04:42 | EKG12_ITS ---
Test Reason : CHEST PAIN Blood Pressure : / mmHG Vent. Rate : 089 BPM Atrial Rate : 089 BPM P-R Int : 170 ms QRS Dur : 086 ms QT Int : 364 ms P-R-T Axes : 062 025 070 degrees QTc Int : 442 ms Normal sinus rhythm Normal ECG When compared with ECG of 02-SEP-2021 09:15, No significant change was found Confirmed by MARIALUISA DE, STEPHAN ([id number]), editor department JERI CHAN ([id number]) on 09/12/2021 1:52:08 PM Referred By: Jose Storm Confirmed By:DAVID ELAM MD
[2021-09-11 08:40] VITALS: BP 118/78; PULSE 84; RESP 18; TEMP 36.9; O2SAT 94
[2021-09-11] MEDS: oxyCODONE 5 MG Tablet PO (09:03)
[2021-09-11] MEDS: buPROPion (XL) 150 MG TABLET.XL PO (09:04)
[2021-09-11] MEDS: Famotidine 20 MG Tablet PO (09:07)
--- NOTE | 2021-09-11 11:42 | PCM.DC ---
Discharge Instructions Follow Up Care Test Results: Test results from this visit will be discussed in further detail at your follow-up appointment, if applicable. Discharge Plan Admission Attending Provider: Taz Garcia Primary Care Provider: Hermann Hernandez Consulting Providers: Marcello Mathews ; Alaina Bhandari Discharge Orders/Prescriptions Prescriptions: No Action bupropion HCl [Wellbutrin XL] 150 mg tablet extended release 24 hr 150 mg PO QPM RF: 0 sumatriptan succinate 50 MG tablet 50 mg PO PRN PRN (Reason: Headache) Qty: 10 RF: 0 ibuprofen 200 mg Tablet 400 mg PO Q8H PRN (Reason: Pain) RF: 0 hydrocodone-acetaminophen 7.5-325 mg tablet 1 tab PO Q6H PRN (Reason: pain) 10 Days Qty: 40 RF: 0 Other Ambulatory Orders: MRSA/SAID SCREEN (PRE SURG) (Routine) Timeframe: 20210321 Facility: [facility] - Location: Laboratory Ordered By: Dr. Jose Storm COVID 19 AG RAPID (RN COLLECT) (Routine) Timeframe: 20210403 Facility: [facility] - Location: Laboratory Ordered By: Dr. Oseas Glass Hepatitis ABC Profile (Routine) Timeframe: 20210321 Facility: [facility] - Location: Laboratory Ordered By: Dr. Jose Storm HIV - [facility] (Routine) Timeframe: 20210321 Facility: [facility] - Location: Laboratory Ordered By: Dr. Jose Storm Magnesium (Routine) Timeframe: 20210327 Facility: [facility] - Location: Laboratory Ordered By: Dr. Oseas Glass Referrals / Follow Up: Hermann Hernandez MD [Primary Care Provider] - Disposition Disposition (needs filled in before D/C Order can be placed): Home, Self Care
--- NOTE | 2021-09-11 11:43 | DS.PCM_ITS ---
Providers Primary Care Physician: Dr. Hermann Hernandez MD Consultations 09/10/21 11:55 Consult: Hospitalist Routine Consulting Provider: Alaina Bhandari Reason for Consult: medical management EMERGENT Consult: No MD Notified: Yes Date Notified: 09/10/21 Time Notified: 19:28 Method of Notification: Text Reason For Visit: ACDIF C5, C6, C7 LT Diagnosis Discharge Diagnosis (1) Neural foraminal stenosis of cervical spine: Status: Acute Code(s): M48.02 - Spinal stenosis, cervical region (2) Radiculopathy affecting upper extremity: Status: Acute Code(s): M54.10 - Radiculopathy, site unspecified Plan: This Dr. Storm obtain discharge summary on Justin Sauceda III. He was admitted yesterday on 09/10/2021 he underwent anterior cervical fusion at C5-6 and C6-7. She tolerated he tolerated the procedure well. On rounds today we change the dressing the drain was removed the incision is healing well. His voice is significantly hoarse probably from traction injury to the right recurrent laryngeal nerve. In all probability this will recover in about 8 weeks. His left arm pain is completely gone and he is very happy about that as I am 2. His swallowing is getting better too. We given directions regarding his activities. He is to start driving in 2 weeks but not before. He will follow me up in the office in 12 days. He knows that he is to have the dressing removed on Thursday and on Thursday he can start showering. In the meantime it has to stay dry. I answered all his questions I will see him again in the office. This is the end of discharge summary and Justin Sauceda. This is Dr. Storm dictating. Medications at Discharge Home Medications sumatriptan succinate 50 mg PO PRN PRN #10 tab 02/09/19 ibuprofen 400 mg PO Q8H PRN 03/21/21 bupropion HCl 150 mg 24 hr tablet, extended release 150 mg PO QPM 07/15/21 hydrocodone 7.5 mg-acetaminophen 325 mg tablet 1 tab PO Q6H PRN 10 Days #40 tab 09/09/21 Weight / BMI Weight Weight: 167 lb 8.821 oz Body Mass Index (BMI) 23.3 ABG / Lab / Microbiology Data Result Diagrams: 09/02/21 09:01 09/02/21 09:01 Microbiology: Microbiology 09/02/21 09:01 Swab (Method) Nasal Screen MRSA/MSSA - Final Radiography Diagnostic Testing: Radiology Impression Spine X-Ray 09/10/21 08:08 IMPRESSION: The localization instrument is within the anterior aspect of the C5-C6 disc. Electronically Signed: Enrico Guerra MD at 13:15 EST , Service support , Spine X-Ray 09/10/21 10:45 IMPRESSION: Status post anterior fusion and prosthetic disc placement at the C5-C6 and C6-C7 levels. Electronically Signed: Enrico Guerra MD at 15:25 EST , Service support , Meaningful Use Info Meaningful Use Diagnoses (Choose all that apply): None applicable Discharge Plan Admission Attending Provider: Taz Garcia Primary Care Provider: Hermann Hernandez Consulting Providers: Marcello Mathews ; Alaina Bhandari Discharge Orders/Prescriptions Prescriptions: No Action bupropion HCl [Wellbutrin XL] 150 mg tablet extended release 24 hr 150 mg PO QPM RF: 0 sumatriptan succinate 50 MG tablet 50 mg PO PRN PRN (Reason: Headache) Qty: 10 RF: 0 ibuprofen 200 mg Tablet 400 mg PO Q8H PRN (Reason: Pain) RF: 0 hydrocodone-acetaminophen 7.5-325 mg tablet 1 tab PO Q6H PRN (Reason: pain) 10 Days Qty: 40 RF: 0 Other Ambulatory Orders: MRSA/SAID SCREEN (PRE SURG) (Routine) Timeframe: 20210321 Facility: [facility] - Location: Laboratory Ordered By: Dr. Jose Storm COVID 19 AG RAPID (RN COLLECT) (Routine) Timeframe: 20210403 Facility: [facility] - Location: Laboratory Ordered By: Dr. Oseas Glass Hepatitis ABC Profile (Routine) Timeframe: 20210321 Facility: [facility] - Location: Laboratory Ordered By: Dr. Jose Storm HIV - [facility] (Routine) Timeframe: 20210321 Facility: [facility] - Location: Laboratory Ordered By: Dr. Jose Storm Magnesium (Routine) Timeframe: 20210327 Facility: [facility] - Location: Laboratory Ordered By: Dr. Oseas Glass Referrals / Follow Up: Hermann Hernandez MD [Primary Care Provider] - Disposition Disposition (needs filled in before D/C Order can be placed): Home, Self Care
[2021-09-11 12:02] VITALS: BP 124/77; PULSE 91; RESP 18; TEMP 36.6; O2SAT 98
--- NOTE | 2021-09-11 12:10 | CASEMGMT ---
PINO DAVIS COMPRESS MACHINE OPERATOR SUSAN to room to meet with patient for initial transition planning/care coordination assessment. PINO DAVIS introduced self and role at [facility]. Pt voices understanding and consents to assessment at this time. Pt sitting up in bed in no distress at this time. Sig Sophie mendoza Dl, @ bedside. Pt is A/O at this time and answers all questions appropriately. Care providers, pharmacy, and demographics verified/updated at this time. PCP: Dr Hernandez Specialists:Dr Storm--ortho Preferred Pharmacy: [facility] Retail Insurance: [place] Prescription Benefit: Yes Living Will/HPOA: Pt does not currently have LW/HCPOA. States would like to complete these and would like for his sig Sophie mendoza to be his HPOA, but does not wish to wait for SW to be available to come in to do them with him before discharge. Pt made aware that he can contact SW as an out-pt and make appt in the future if he decides he would like to talk with someone about this or would like to utilize [facility] social work for advanced directive completion. Pt expresses understanding. LNOK: Sig kellySophie Dl Living Arrangements: Lives w/Sophie in 2-story home. [employer]. One step to enter home. Independent. Transportation: Pt states drives self and states no transportation concerns at this time. Sophie also drives. DME: Denies using any DME and denies needs. Pt wishes to return home and states has no concerns with going home at time of discharge. PLAN: Home w/support of sig Sophie mendoza, and discharge plans in place. Sahil HUNT RN, CM
== END 2021-09-11 12:26 | disposition home or self-care (01) ==
LOC: MS2 09-11 07:03
PROVIDERS: Anesthesiology; Admitting Provider Orthopaedic Surgery; PCP Family Medicine; Referring Provider Orthopaedic Surgery; Visit Provider Internal Medicine
PROC: (CPT 22551; principal; 2021-09-10 07:00)
DX: M50.10 Cervical disc disorder with radiculopathy, unspecified cervical region (principal); M48.02 Spinal stenosis, cervical region; K21.9 Gastro-esophageal reflux disease without esophagitis; Z86.19 Personal history of other infectious and parasitic diseases; G43.909 Migraine, unspecified, not intractable, without status migrainosus; Z79.899 Other long term (current) drug therapy; Z87.891 Personal history of nicotine dependence
CPT/HCPCS: 22551; 22552; 20931; 22853 ×2; 22845; 36415; 72020; 80048; 82962; 83735; 85025; 86703; 86706; 86708; 86803; 87077; 87081; 88304; 88305; 93005; 96361; 96365; 96375; 96376; 99218; 99251; 99406; C1713; J7120; G0378; G0463; J2405

== ENCOUNTER 2021-10-29 21:13 | Emergency (ER) | payer BC, MEDICAID, SELFPAY ==
[2021-10-29 21:13] VITALS: BP 140/92; PULSE 110; RESP 16; TEMP 36.6; O2SAT 98; BMI 23.7
[2021-10-29 21:29] VITALS: BP 132/97; PULSE 101; RESP 16; O2SAT 96
[2021-10-29] MEDS: Ondansetron ODT 4 MG Tablet PO (21:33)
--- NOTE | 2021-10-29 21:36 | EX.ED.DYSGE1 ---
HPI History of Present Illness Chief Complaint: Overdose Informant: patient Onset/Context/Timing Onset: Today Narrative Narrative: Patient presents via private vehicle after overdosing on heroin. Patient reports history of heroin abuse with 6 years of sobriety. He reports today was a hard day as his father who recently had his trailer torn down. He is up to the gas station on the way home from work to get gas and someone offered him heroin. He states he took this after he got home and became unresponsive. He states the next thing he knows paramedics and police were standing around him. He reportedly got 2 doses of Narcan and woke up. He signed off at the scene and refused transport, but states he was told that as the Narcan wears off he could go down again. This made him nervous and he presented for evaluation. He presents an hour and a half after he was given Narcan. [facility] Medical History Former smoker Gastric reflux History of hepatitis C History of steroid therapy Hx of psychiatric care (~2012) Injury of head and neck Migraine headache Home Medications ibuprofen 400 mg PO Q8H PRN 03/21/21 [History Last Taken Unknown] Allergy/AdvReac Type Severity Reaction Status Date / Time No Known Allergies Allergy Verified 10/29/21 21:16 Surgical History H/O splenectomy (~1990) Hx of hernia repair (~2018) Social History Smoking Status: Former smoker ROS ROS ED Constitutional Constitutional ED: Denies chills or fever(s) Eyes Eyes: Denies change in vision ENT ENT ED: Denies sore throat Cardiovascular Cardiovascular: Denies chest pain Respiratory/Chest Respiratory/Chest: Denies cough or dyspnea Gastrointestinal Gastrointestinal: Reports nausea; Denies abdominal pain, diarrhea or vomiting Genitourinary Genitourinary ED: Denies dysuria Musculoskeletal Musculoskeletal: Denies back pain Integumentary Denies rash Neurologic Neurologic: Denies headache(s) or weakness Psychiatric Psychiatric: Reports anxiety; Denies depression Allergic/Immunologic Allergic/Immunologic ED: Denies urticaria EXAM Physical Exam Const Vital Signs: 10/29/21 21:13 10/29/21 21:29 Temperature 97.8 F Temperature Source Temporal Pulse Rate 110 H 101 H Respiratory Rate 16 16 Blood Pressure 140/92 H 132/97 H Blood Pressure Mean 108 108 Pulse Ox 98 96 Oxygen Delivery Method Room Air Room Air Positive well nourished and well developed General Appearance ED: well developed HEENT Reports moist mucous membranes Eyes PERRL and EOMs intact bilaterally Neck supple Chest Wall inspection of chest normal and palpation of chest normal Resp normal respiratory effort and clear to auscultation bilaterally Cardio regular rate and regular rhythm GI non-tender Auscultation: hypoactive bowel sounds Palpation: soft Extremity normal to inspection Neuro oriented x3 Sensorium / Orientation: alert Psych Mood & Affect: tearful Skin no rashes or lesions noted MDM MDM MDM Narrative Medical decision making narrative: Patient placed on playground monitor. Patient given Zofran ODT for nausea. Treatment and Re-Evaluation Comments:: Patient has been observed to a point of 2 hours after Narcan was given. Vital signs are stable. Patient was seen by social work and resources provided for him for support. He denies suicidal or homicidal ideation. With patient having one single episode of drug use after being sober for 6 months he would not qualify for a detox program. Return instructions are provided. Discharge Plan Triage Chief Complaint: Overdose ED Provider: Gilma Wheat Dx/Rx/DC Orders Clinical Impression: Overdose of heroin Instructions: ED Overdose, Opiate Prescriptions: No Action ibuprofen 200 mg Tablet 400 mg PO Q8H PRN (Reason: Pain) RF: 0 Stand Alone Forms: ED Work / School Excuse Primary Care Provider: Hermann Hernandez Referrals: Hermann Hernandez MD [Primary Care Provider] - [facility] [STAFF PHYSICIAN] - As Needed Disposition Disposition: Home, Self Care
--- NOTE | 2021-10-29 21:48 | CM.ED ---
SW Note Referral Source: MD Referral Reason: Patient came to the ED after overdosing on heroin after 6 years of being sober SW met with patient. Patient said that he has been sober for 6 years. Patient became sober when he went to local assisted and from there he went to intermediate. Patient said that his overdose tonight was a momentary loss of judgement. Patient remorseful about throwing away his soberity. SW provided emotional support. Patient was previously linked with [employer] [facility] but not currently linked. 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 Patient was advised that [facility] has various supports and programming and SW encouraged him to contact them for support. Patient verbalized understanding. SW also provided patient with a resource book on safety plans related to AOD use. SW asked patient if he wanted the booklet and he said yes. SW also provided patient with treatment navigator phone number and explained their role. Patient denied any SI/HI. SW discussed that [facility] has various programs that can be a support to him related to current grief related to the of his father and his father's residence being torn down today. Patient voiced appreciation for the resources. No further needs or concerns voiced. SW remains available. updated Plan: Resource Provided Nirmala BORGES
[2021-10-29 22:16] VITALS: BP 128/74; PULSE 100; RESP 15; O2SAT 99
[2021-10-29 22:19] VITALS: RESP 16
== END 2021-10-29 22:19 | disposition home or self-care (01) ==
PROVIDERS: Emergency Provider Emergency Medicine; PCP Family Medicine; Visit Provider Emergency Medicine
DX: T40.1X1A Poisoning by heroin, accidental (unintentional), initial encounter (principal); R11.0 Nausea; Z87.891 Personal history of nicotine dependence
CPT/HCPCS: 99284

== ENCOUNTER 2023-01-05 07:01 | Emergency (ER) | payer MEDICAID, SELFPAY ==
[2023-01-05 07:02] VITALS: BP 128/97; PULSE 88; RESP 16; TEMP 36.7; O2SAT 100; BMI 21.8
--- NOTE | 2023-01-05 07:13 | EDS_ITS ---
HPI History of Present Illness Chief Complaint: Back Narrative Narrative: Patient presents with lumbar back pain. 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 He has no other injury. He has no bowel or bladder compromise. No recent fevers or chills. No weakness or paresthesias. No urinary retention symptoms. PFSH PFSH Medical History Former smoker Gastric reflux History of hepatitis C History of steroid therapy Hx of psychiatric care (~2012) Injury of head and neck Migraine headache Home Medications ibuprofen 200 mg tablet 400 mg PO Q8H PRN Pain 03/21/21 [History Last Taken Unknown] naproxen 500 mg tablet (Naprosyn) 500 mg PO BID PRN pain #20 tabs 01/05/23 [Rx Last Taken Unknown] tizanidine 4 mg tablet 4 mg PO Q8H PRN muscle spasticity #20 tabs 01/05/23 [Rx Last Taken Unknown] Allergy/AdvReac Type Severity Reaction Status Date / Time No Known Allergies Allergy Verified 01/05/23 07:02 Surgical History H/O splenectomy (~1990) Hx of hernia repair (~2018) Social History Smoking Status: Current some day smoker tobacco type: cigarettes and e- cigarettes ROS ROS ED ROS Narrative Past medical history: Reviewed, includes prior back pain and history of alcoholism Medications: Reviewed Social history: As above Review of systems: All systems negative except as indicated General: No fever Neck: No neck pain Cardiovascular: No chest pain Respiratory: No shortness of breath or cough Gastrointestinal: No abdominal pain, nausea vomiting or diarrhea Genitourinary: No urinary retention Musculoskeletal: Back pain as in HPI Skin: No rash Neurological: No weakness or paresthesias EXAM Physical Exam Narrative Exam Narrative: Vitals reviewed General: Patient appears in some discomfort HEENT: Moist mucous membranes Neck: Nontender Cardiovascular normal heart rate Respiratory: No respiratory difficulty speaking in full sentences Abdomen: Soft and nontender, there is no suprapubic mass or pain Back: There is some tenderness over the lumbar region, pain is spinal and paraspinal both. Extremities: Moves all extremities without joint pain or signs of trauma Neurological: There is normal plantar flexion and dorsiflexion of both feet and great toes. Patellar and Achilles reflexes are normal. Normal strength and sensation. Negative straight leg test. Skin: No rash Psychiatric: Slightly anxious. Const Vital Signs: 01/05/23 07:02 Temperature 98.1 F Temperature Source Temporal Pulse Rate 88 Respiratory Rate 16 Blood Pressure 128/97 H Blood Pressure Mean 107 Pulse Ox 100 Oxygen Delivery Method Room Air MDM MDM MDM Narrative Medical decision making narrative: Patient has lumbar back pain. This time he does not have any red flags to warrant an MRI. I thought about x-rays however again he has no trauma other than overuse therefore I do not believe that would be useful. Patient will be treated with muscle relaxers and NSAIDs. Otherwise he will continue to follow proper form when he works and otherwise I believe he can be safely discharged. Discharge Plan Triage Chief Complaint: Back ED Provider: Howard Brenner Dx/Rx/DC Orders Clinical Impression: Back pain, Muscle spasm Instructions: Back Basics: A Healthy Spine Prescriptions: New naproxen [Naprosyn] 500 mg tablet 500 mg PO BID PRN (Reason: pain) Qty: 20 0RF tizanidine 4 mg tablet 4 mg PO Q8H PRN (Reason: muscle spasticity) Qty: 20 0RF No Action ibuprofen 200 mg Tablet 400 mg PO Q8H PRN (Reason: Pain) Primary Care Provider: Hermann Hernandez Referrals: Hermann Hernandez MD [Primary Care Provider] - 3-5 Days Disposition Disposition: Home, Self Care
[2023-01-05 07:32] VITALS: RESP 16
== END 2023-01-05 07:32 | disposition home or self-care (01) ==
PROVIDERS: Emergency Provider Emergency Medicine; PCP Family Medicine; Visit Provider Emergency Medicine
DX: M54.50 Low back pain, unspecified (principal); M62.838 Other muscle spasm; F17.210 Nicotine dependence, cigarettes, uncomplicated
CPT/HCPCS: 99282

== ENCOUNTER 2024-09-09 21:54 | Emergency (ER) | payer MEDICAID, SELFPAY ==
[2024-09-09 21:56] VITALS: BP 162/90; PULSE 97; RESP 18; TEMP 36.8; O2SAT 99; BMI 24.1
--- NOTE | 2024-09-09 22:37 | EDS_ITS ---
HPI History of Present Illness Chief Complaint: Substance Abuse Detail of Chief Complaint: Drug dependency to methamphetamine and fentanyl Informant: patient Onset/Context/Timing Onset: Month(s) and - Context: Sudden Onset Timing: Continuous Quality: Patient uses 1/2 to 1 g of methamphetamine daily and quarter gram of fentan Location: Drug abuser Current Severity: Moderate Maximum Severity: Moderate Worsened by: Dependency Relieved by: Nothing Associated Symptoms Associated Symptoms: Negative for vomiting*, diarrhea*, fever*, rash*, seizure, tremor, palpatations, change in mental status, trauma, sex for drugs*, suicidal ideation, homicidal ideation, other: or *HIV Risk Factors:Consider testing if last test > 6 months Narrative Narrative: Patient is a 44-year-old male. He and his significant other plans on going to detox in July. They broke up. He is using 1/2 g to 1 g of methamphetamine daily and 1/4 g of fentanyl daily. He denies history of HIV or hepatitis. He has never been in a drug rehab program. He was at a [facility]pc house this past summer that was affiliated with [facility]. He presents seeking help per patient. He does admit that he is homeless. He does admit that he smokes. He denies alcohol use. Prior similar symptoms: Yes Recent Illness/Hospitalization: No PFSH [facility] Medical History Former smoker History of steroid therapy History of hepatitis C Injury of head and neck Migraine headache Gastric reflux Hx of psychiatric care (~2012) Home Medications ?Medication ?Instructions ?Recorded ?Last Taken ?Type ibuprofen 200 mg tablet 400 mg PO Q8H PRN Pain 03/21/21 Unknown History naproxen 500 mg tablet (Naprosyn) 500 mg PO BID PRN pain #20 tabs 01/05/23 Unknown Rx tizanidine 4 mg tablet 4 mg PO Q8H PRN muscle spasticity 01/05/23 Unknown Rx #20 tabs Allergy/AdvReac Type Severity Reaction Status Date / Time No Known Allergies Allergy Verified 09/09/24 21:58 Surgical History H/O splenectomy (~1990) Hx of hernia repair (~2018) Social History (Updated 09/09/24 @ 22:[address] Roque Jain MD) household members: none Smoking Status: Current some day smoker tobacco type: cigarettes and e- cigarettes alcohol intake: former substance use type: amphetamines and opiates ROS ROS ED Constitutional Constitutional ED: Denies chills, fever(s), subjective or sweats Eyes Eyes: Denies blurry vision or change in vision ENT ENT ED: Denies rhinorrhea Cardiovascular Cardiovascular: Denies chest pain or palpitations Respiratory/Chest Respiratory/Chest: Denies cough, dyspnea or dyspnea on exertion Gastrointestinal Gastrointestinal: Denies abdominal pain, diarrhea, nausea or vomiting Musculoskeletal Musculoskeletal: Denies arthralgias or myalgias Integumentary Denies rash Neurologic Neurologic: Denies headache(s) or paresthesias Hematologic/Lymphatic Hematologic/Lymphatic: Denies easy bleeding or easy bruising EXAM Physical Exam Const Vital Signs: 09/09/24 21:56 Temperature 98.2 F Temperature Source Oral Pulse Rate 97 Respiratory Rate 18 Blood Pressure 162/90 H Blood Pressure Mean 114 Pulse Ox 99 Oxygen Delivery Method Room Air Positive well nourished and well developed General Appearance ED: well developed and NAD; Negative for pallor HEENT Reports moist mucous membranes atraumatic; Negative for tenderness Eyes PERRL and EOMs intact bilaterally General Eye ED: Negative for pale conjunctiva or scleral icterus Neck supple and no JVD Resp normal respiratory effort and clear to auscultation bilaterally Cardio regular rate, regular rhythm, S1 normal heart sound, S2 normal heart sound and no murmurs Extremity Extremity Narrative: There is no clubbing or cyanosis. Neuro oriented x3 and CN's II-XII intact bilaterally [place] Coma Scale: document GCS findings Spontaneous Obeys Commands Oriented 15 Sensorium / Orientation: alert Speech: speech normal Gait (Neuro): normal gait Psych mental status grossly normal and thought process normal Skin Skin Narrative: Patient has numerous tattoos. General Skin Exam: Negative for jaundice or pallor Lesions: no lesions Rashes: no rashes MDM MDM MDM Narrative Medical decision making narrative: Patient seeking detox from methamphetamine fentanyl. Charge nurse informing that we may not have beds. Prior to ordering tests charge nurse, Gianna, check to see if there is any open beds. Presently there are no open beds. Patient was instructed to call tomorrow and Thursday as well as Thursday. Recommended he return when there is a bed available. Will also have him follow-up with his primary care provider for blood pressure recheck since his blood pressure is elevated 162/90. He has no history of hypertension. Since he is asymptomatic there is no indication for imaging or laboratory testing. Patient was last seen in the emergency room December 2022 for back pain. He has been seen by Dr. Jose Storm for neuroforaminal stenosis of the cervical spine and subsequently underwent surgery. History & Record Review Additional record(s) reviewed:: Prior outpatient record (Dr. Jose Storm's office notes.) and Prior ED visit Discharge Plan Triage Chief Complaint: Substance Abuse ED Provider: Roque Jain Dx/Rx/DC Orders Clinical Impression: Methamphetamine use disorder, mild, S/P cervical spinal fusion, Fentanyl use disorder, mild, abuse, Elevated blood-pressure reading without diagnosis of hypertension Instructions: ED Drug Abuse Prescriptions: No Action ibuprofen 200 mg Tablet 400 mg PO Q8H PRN (Reason: Pain) naproxen [Naprosyn] 500 mg tablet 500 mg PO BID PRN (Reason: pain) Qty: 20 0RF tizanidine 4 mg tablet 4 mg PO Q8H PRN (Reason: muscle spasticity) Qty: 20 0RF Primary Care Provider: Hermann Hernandez Referrals: Hermann Hernandez MD [Primary Care Provider] - 1-2 Weeks [facility] [Non-Staff] - 3-5 Days Activity Restrictions/Additional Instructions: 1. Your blood pressure is elevated in the emergency department. Recommend follow-up with Dr. Hernandez to have your blood pressure checked in 1 to 2 weeks. 2. Presently there are no beds. Recommend calling the ER and ask if there are any beds available on Thursday, Thursday and Thursday. If beds are available please return and we will gladly help you with your dependency on methamphetamine and fentanyl Print Language: Amharic Disposition Disposition: Home, Self Care
== END 2024-09-09 22:52 | disposition home or self-care (01) ==
PROVIDERS: Emergency Provider Emergency Medicine; PCP Family Medicine; Visit Provider Emergency Medicine
DX: F15.90 Other stimulant use, unspecified, uncomplicated (principal); F11.10 Opioid abuse, uncomplicated; R03.0 Elevated blood-pressure reading, without diagnosis of hypertension; F17.210 Nicotine dependence, cigarettes, uncomplicated; F17.290 Nicotine dependence, other tobacco product, uncomplicated; Z98.1 Arthrodesis status; Z59.00 Homelessness unspecified
CPT/HCPCS: 99282

== ENCOUNTER 2024-10-08 06:35 | Emergency (ER) | payer MEDICAID, SELFPAY ==
[2024-10-08 06:37] VITALS: BP 122/74; PULSE 70; RESP 16; TEMP 36.4; O2SAT 98; BMI 22.8
--- NOTE | 2024-10-08 07:32 | EX.ED.VIS.HA ---
HPI History of Present Illness Chief Complaint: Headache Informant: patient Onset/Context/Timing Onset: Yesterday Context: Gradual Timing: Continuous Quality -Headache: Positive for Similar Prior Headaches and Sharp Current Severity: Moderate Maximum Severity: Moderate Associated Symptoms/Injury Associated Symptoms: Positive for Nausea and Photophobia Injury - WALLS: Negative for Direct Trauma, Fall or Assault Narrative Narrative: 44-year-old homeless male history of hep C and migraine headaches. States she has had migraine headaches for years. States that his headache began yesterday morning gradual in onset. Associated with photophobia. Nausea but no vomiting. No fever. He is on no blood thinners. He has had no recent head trauma. Denies any fever. Similar to his prior headaches. Prior similar symptoms: Yes Recent Illness/Hospitalization: No PFSH PFSH Medical History Former smoker History of steroid therapy History of hepatitis C Injury of head and neck Migraine headache Gastric reflux Hx of psychiatric care (~2012) Home Medications ?Medication ?Instructions ?Recorded ?Last Taken ?Type NK 10/08/24 Unknown History Allergy/AdvReac Type Severity Reaction Status Date / Time No Known Allergies Allergy Verified 10/08/24 06:36 Surgical History H/O splenectomy (~1990) Hx of hernia repair (~2018) Social History household members: none Smoking Status: Current every day smoker tobacco type: cigarettes and e-cigarettes alcohol intake: former substance use type: amphetamines and opiates ROS ROS ED ROS Narrative Headache. Nausea. Constitutional Constitutional ED: Denies chills or fever(s) Eyes Eyes: Denies blurry vision, change in vision or diplopia ENT ENT ED: Denies ear pain or rhinorrhea Cardiovascular Cardiovascular: Denies chest pain Respiratory/Chest Respiratory/Chest: Denies cough or dyspnea Gastrointestinal Gastrointestinal: Reports nausea; Denies abdominal pain, constipation, diarrhea, melena or vomiting Genitourinary Genitourinary ED: Denies dysuria or hematuria Musculoskeletal Musculoskeletal: Denies arthralgias Integumentary Denies abscess Neurologic Neurologic: Reports headache(s); Denies paresthesias or weakness Psychiatric Psychiatric: Denies anxiety or depression Endocrine Endocrinology: Denies polydipsia Hematologic/Lymphatic Hematologic/Lymphatic: Denies easy bleeding or lymphadenopathy Allergic/Immunologic Allergic/Immunologic ED: Denies mouth swelling, tongue swelling or urticaria EXAM Physical Exam Narrative Exam Narrative: 44-year-old male playing in bed. Vital signs are stable afebrile. No one else present in the room. He does not look septic or toxic. He is in no distress. He is complaining of photophobia. H EENT exam pupils round reactive light. Moist mucous membranes. No trauma to his face or scalp. Nontender no hematoma. Neck nontender no meningismus. No lymphadenopathy. Back nontender. Lungs clear to auscultation bilaterally. Heart regular rhythm no murmur. Chest wall and ribs nontender. Abdomen soft nontender. Moving all 4 extremities normal strength. Normal range of motion. Neurologically is awake and alert no focal motor deficits. NIH 0. Answering questions and following commands. Const Vital Signs: 10/08/24 06:37 10/08/24 08:36 10/08/24 10:00 Temperature 97.6 F L Temperature Source Oral Pulse Rate 70 71 71 Respiratory Rate 16 17 18 Blood Pressure 122/74 H Blood Pressure Mean 90 Pulse Ox 98 99 98 Oxygen Delivery Method Room Air Room Air Positive well nourished and well developed; Negative for obese, cachectic, contractures or unkempt General Appearance ED: well developed and NAD; Negative for unkempt, cachectic, contractures, cyanotic or diaphoretic Nutritional Appearance: Negative for cachectic or obese HEENT Reports normocephalic and moist mucous membranes; Denies dry mucous membranes atraumatic; Negative for trauma, tenderness, temporal artery tenderness or vesicular rash Face and Sinus: Negative for sinus tenderness Mouth ED: No dry mucous membranes Mouth: No dry mucous membranes Eyes PERRL and EOMs intact bilaterally General Eye ED: Negative for pale conjunctiva or scleral icterus Neck no lymphadenopathy, supple, no meningeal signs and no JVD General: Negative for tenderness Resp normal respiratory effort and clear to auscultation bilaterally Effort and Inspection: Negative for retractions Auscultation: Negative for rales, rhonchi, wheezes or diminished lung sounds Cardio regular rate, regular rhythm, S1 normal heart sound, S2 normal heart sound and no murmurs Rate: Negative for bradycardia or tachycardic Rhythm: Negative for abnormal rhythm GI non-tender and non-distended Auscultation: normoactive bowel sounds Palpation: soft; Negative for firm, tender, guarding, rigid, hepatomegaly, splenomegaly, mass or other Back/Spine no CVA tenderness General Back: Negative for CVA tenderness Cervical Spine: Negative for cervical spine tenderness Thoracic Spine / Upper Back: Negative for thoracic spinal tenderness Lumbar Spine / Lower Back: Negative for lumbar spinal tenderness Extremity normal to inspection and full ROM General Extremety ED: Negative for edema or tenderness General Extremity: Negative for edema Neuro oriented x3 and CN's II-XII intact bilaterally Sensorium / Orientation: awake, alert, oriented to person, oriented to place and oriented to time; Negative for orientation impaired, lethargic or stuporous Coordination / Balance: [id number] test normal Speech: speech normal Motor Exam: strength 5/5 throughout Psych mental status grossly normal Appearance: Negative for unkempt Mood & Affect: Negative for anxious Skin Skin Narrative: No rashes. Multiple tattoos. Lesions: no lesions Rashes: no rashes MDM MDM MDM Narrative Medical decision making narrative: 44-year-old male history of migraines. Normal exam. Normal neurologic exam. To be treated with IV fluids, Toradol Benadryl and Zofran and reassess. I do not feel he needs any imaging. Repeat exam at 10:35 AM patient is doing well. Headache is resolved. He is feeling much better. His neurologic exam is normal. He is comfortable being discharged. History & Record Review Discussion w/independent historian: Patient Additional record(s) reviewed:: Prior inpatient record, Prior ED visit and Prior labs Discharge Plan Triage Chief Complaint: Headache ED Provider: Refugio Cole Dx/Rx/DC Orders Clinical Impression: Migraine headache Instructions: ED Headache Unspecified Prescriptions: No Action NK Primary Care Provider: Hermann Hernandez Referrals: Hermann Hernandez MD [Primary Care Provider] - 3-5 Days if not improving Activity Restrictions/Additional Instructions: Plenty of fluids and rest. Alternate Tylenol and Motrin for headache. Follow-up with your primary care provider if not improving or return if worse. Print Language: Belarusian Disposition Disposition: Home, Self Care
[2024-10-08] MEDS: Ketorolac 30 MG/ML Syringe IV (08:12)
[2024-10-08] MEDS: Ondansetron 4 MG/2 ML Vial IV (08:12)
[2024-10-08] MEDS: DiphenhydrAMINE 50 MG/ML Syringe IV (08:12)
[2024-10-08] MEDS: 0.9% Normal Saline (500mL Bag) 500 ML 1000 ML IV (08:12)
[2024-10-08 08:36] VITALS: PULSE 71; RESP 17; O2SAT 99
[2024-10-08 10:00] VITALS: PULSE 71; RESP 18; O2SAT 98
--- NOTE | 2024-10-08 10:44 | ED.RN ---
PT REFUSED TO UNCOVER HIS FACE WHEN THIS NURSE CAME INTO THE ROOM TO GO OVER D/C PAPERWORK AND D/C IV. WHEN I TOLD PT HE IS GOOD TO GO, HE ASKED IF HE COULD LAY THERE A FEW MINUTES AND I STATED NO YOU ARE ALL SET AND WE NEED TO OPEN THE ROOMS FOR OTHER PTS NEEDING A BED. PT CUSSED AT NURSE AND WAS UPSET ABOUT NEEDING TO LEAVE
== END 2024-10-08 10:46 | disposition home or self-care (01) ==
PROVIDERS: Emergency Provider Emergency Medicine; PCP Family Medicine; Visit Provider Emergency Medicine
DX: G43.909 Migraine, unspecified, not intractable, without status migrainosus (principal); F17.210 Nicotine dependence, cigarettes, uncomplicated; F17.290 Nicotine dependence, other tobacco product, uncomplicated
CPT/HCPCS: 96374; 96375; 96376; 99284; A4216; J2405

== ENCOUNTER 2024-12-01 18:37 | Emergency (ER) | payer MEDICAID, SELFPAY ==
[2024-12-01 18:39] VITALS: BP 131/91; PULSE 104; RESP 15; TEMP 36.8; O2SAT 99; BMI 22.9
[2024-12-01] MEDS: Ondansetron ODT 4 MG Tablet PO (18:45)
--- NOTE | 2024-12-01 18:47 | EDS_ITS ---
HPI History of Present Illness Chief Complaint: Overdose Narrative Narrative: Patient is a 44-year-old male with past medical history of of substance abuse, hepatitis C, GERD who presents to the emergency department with a chief complaint of overdose. Patient states that he was trying to do some dope and overdosed on heroin. Per EMS they gave 2 mg intranasally at 6:12 PM. Patient states that he feels nauseous right now and he feels like he has poop. Patient states that he does not want detox. PFSH PFS Medical History Former smoker History of steroid therapy History of hepatitis C Injury of head and neck Migraine headache Gastric reflux Hx of psychiatric care (~2012) Home Medications ?Medication ?Instructions ?Recorded ?Last Taken ?Type NK 10/08/24 Unknown History Allergy/AdvReac Type Severity Reaction Status Date / Time No Known Allergies Allergy Verified 12/01/24 18:38 Surgical History H/O splenectomy (~1990) Hx of hernia repair (~2018) Social History household members: none Smoking Status: Current every day smoker tobacco type: cigarettes and e- cigarettes alcohol intake: former substance use type: amphetamines and opiates ROS ROS ED ROS Narrative Constitutional: Denies any headache, lightness, does, fevers or chills Cardiovascular denies chest pain palpitation Respiratory: No shortness of breath or coughing Abdomen: Complains of nausea as noted above denies vomiting or diarrhea Neurological: Denies any numbness, weakness, tingling Skin: Denies any rashes lesions EXAM Physical Exam Narrative Exam Narrative: General: Patient is lying in bed rest comfortably did not appear to be in acute distress Head: Atraumatic, normocephalic Eyes: PERRL bilateral, EOMI bilateral, no conjunctival injection noted Neck: Soft, supple, trachea midline Cardiovascular: Regular rate and rhythm no murmurs gallops rubs noted Respiratory: Clear to auscultation bilaterally Abdomen: Soft, nondistended, nontender to palpation Extremities: +5/5 strength noted in the bilateral upper and lower extremities Neurological: Patient following commands and that he was at [facility] years 2024 NIH is 0 GCS 15 Skin: Warm, dry, intact no rashes lesions noted Const Vital Signs: 12/01/24 18:39 12/01/24 18:55 12/01/24 19:08 Temperature 98.2 F Temperature Source Oral Pulse Rate 104 H 93 82 Respiratory Rate 15 14 12 Blood Pressure 131/91 H 119/88 H 117/83 H Blood Pressure Mean 104 98 94 Pulse Ox 99 100 100 Oxygen Delivery Method Room Air Room Air Room Air 12/01/24 19:30 Temperature Temperature Source Pulse Rate 76 Respiratory Rate 16 Blood Pressure 117/83 H Blood Pressure Mean 94 Pulse Ox 100 Oxygen Delivery Method Room Air MDM MDM MDM Narrative Medical decision making narrative: Patient is a 44-year-old male who presented to the emergency department via EMS after an overdose on heroin. Patient once again was given intranasal Narcan at 6:12 PM. He will be observed here in the emergency department he is nauseous therefore he will be given ODT Zofran. I did offer him detox and he states that he is not interested. Patient was observed for approximately an hour and a half to an hour 40 minutes and was alert and oriented walking around the room talking on the phone. Patient per nursing staff eloped. Discharge Plan Triage Chief Complaint: Overdose ED Provider: Anurag Jack Dx/Rx/DC Orders Clinical Impression: Overdose Prescriptions: No Action NK Primary Care Provider: Hermann Hernandez Referrals: Hermann Hernandez MD [Primary Care Provider] - Print Language: [place] Disposition Disposition: Elopement Discharge Date/Time: 12/01/24 20:17
[2024-12-01 18:55] VITALS: BP 119/88; PULSE 93; RESP 14; O2SAT 100
[2024-12-01 19:08] VITALS: BP 117/83; PULSE 82; RESP 12; O2SAT 100
[2024-12-01 19:30] VITALS: BP 117/83; PULSE 76; RESP 16; O2SAT 100
--- NOTE | 2024-12-01 20:14 | CM.ED ---
Social work Reason for referral: overdose Referral source: case find This SW identified patient's presentation to [facility] ED due to heroin overdose. Per Dr. Jack's note, patient denied wanting detox upon entry to [facility] ED, so SW entered patient's room with intention of providing resources should patient continue to refuse. SW introduced self and role at [facility] upon entry to patient's room. Patient was observed laying in bed with eyes closed, stating patient had a headache and was still nauseous. Patient stated wanting to detox and enter treatment which was the opposite of what patient had told Dr. Jack earlier. Patient stated wanting treatment, but not wanting treatment in [place] due to [employer] not letting me. Patient clarified that patient has been aggressive and non-compliant resulting in patient's decision to choose [facility] in [facility] instead. Patient stated being willing to stay for detox, but having to take care of business first; patient clarified needing to find a place for patient's dog, Rosa, to go to while patient was away. SW asked if one of patient's emergency contacts would be able to help with finding a safe place for patient's dog and patient stated Thea Zamarripa, patient's ex-girlfriend, would be able to keep the dog, but Thea would not be able to go get the dog because Thea reportedly does not get along well with the people where patient's dog was currently at. Patient requested to speak with Thea on the phone to discuss desire for detox. Patient spoke with Thea on SW's phone (ph: [phone]) and was heard stating, I'll be there shortly. Upon hanging up, patient stated patient was leaving and patient stated patient's intention to go retrieve patient's dog. SW left resources including [employer] card, [employer] brochure, and local food pantries. SW informed machine operator transplanter Sam and Dr. Jack. Patient left [facility] ED without signing AMA paperwork. Lenora Moreno, INTERVENTION ANALYST, REGULATORY AFFAIRS STRATEGY SPECIALIST
--- NOTE | 2024-12-01 20:14 | ED.RN ---
Pt requesting to leave. Advised pt we would get the doc. Pt A&Ox4 and able to walk out of department without problem. Dr. Jack updated.
== END 2024-12-01 20:17 | disposition left against medical advice (07) ==
LOC: ED 19:02
PROVIDERS: Emergency Provider Emergency Medicine; PCP Family Medicine; Referring Provider Emergency Medicine; Visit Provider Emergency Medicine
DX: T40.1X4A Poisoning by heroin, undetermined, initial encounter (principal); F17.210 Nicotine dependence, cigarettes, uncomplicated; F17.290 Nicotine dependence, other tobacco product, uncomplicated
CPT/HCPCS: 99284

== ENCOUNTER 2025-01-12 21:31 | Emergency (ER) | payer MEDICAID, SELFPAY ==
[2025-01-12 21:31] VITALS: BP 138/85; PULSE 88; RESP 15; TEMP 35.7; O2SAT 98; BMI 23.6
[2025-01-12 22:31] VITALS: BP 110/79; PULSE 65; RESP 18; O2SAT 99
[2025-01-12 22:50] LABS: Absolute Lymphocyte Count 1.94 X10^3/uL (0.83-4.51); Absolute Neutrophil Count 3.1 X10^3/uL (2.0-7.7); Basophil# 0.03 X10^3/uL; Basophil% 0.5 % (0-1); Eosinophil# 0.21 X10^3/uL; Eosinophils% 3.7 % (0-5); Hematocrit 35.8 % (40-54); Hemoglobin 12.3 g/dL (13.0-16.5); Lymphocyte # 1.94 X10^3/ul (0.83-4.51); Lymphocyte % 33.9 % (19-41); Mean Corp Hgb Conc 34.4 g/dL (32-36); Mean Corpuscular Hgb 32.8 pg (27.0-32.0); Mean Corpuscular Volume 95.5 fL (80-94); Mean Platelet Vol. 8.2 fl (6.2-12.0); Monocyte# 0.43 X10^3/uL; Monocyte% 7.5 % (0-10); NRBC Flagged by Analyzer 0 % (0-5); Neutrophil # 3.11 X10^3/uL (2.7-7.7); Neutrophil % 54.2 % (47-70); Platelet Count 185 K/mm3 (150-450); RBC Distribution Width CV 12.8 % (11.6-14.6); RBC Distribution Width SD 44.9 fl (35.1-43.9); Red Blood Count 3.75 M/mm3 (4.6-6.2); White Blood Count 5.7 K/mm3 (4.4-11.0)
[2025-01-12 23:06] LABS: ALB/GLOB Ratio 1.7 RATIO (0.9-2.4); AST(SGOT) 17 U/L (<=37); Alanine Aminotransfer ALT/SGPT 9 U/L (<=46); Albumin, Serum 3.7 g/dL (3.5-5.0); Alcohol, Blood (Medical)-Serum < 10.1 mg/dL (<=10.0); Alkaline Phosphatase 74 U/L (40-129); Anion Gap 9 (5-15); BUN 7 mg/dL (4-19); BUN/Creat Ratio 8.3 RATIO (10-20); Calcium,Total 8.7 mg/dL (7.6-11.0); Carbon Dioxide 24.8 mmol/L (21.0-32.0); Chloride 106 mmol/L (98-108); EST Glomerular Filtration Rate 109 (>60); Estimated Creatinine Clearance 113.88 ml/min (50-250); Globulin 2.2 g/dL (2.2-4.2); Glucose 102 mg/dL (70-99); Potassium 4.1 mmol/L (3.3-5.1); Protein, Total 5.9 g/dL (5.9-8.4); Sodium Level 139 mmol/L (133-145); Total Bilirubin 0.28 mg/dL (0.00-1.30)
[2025-01-12 23:16] LABS: Amphetamine Urine PRESUMPTIVE POSITIVE (<1000 ng/mL); Barbiturate Urine NEGATIVE (< 200 ng/mL); Benzodiazepine Urine NEGATIVE (< 200 ng/mL); Buprenorphine Urine NEGATIVE (< 200 ng/mL); Cocaine Urine PRESUMPTIVE POSITIVE (< 300 ng/mL); Fentanyl, Urine PRESUMPTIVE POSITIVE; Methadone Urine NEGATIVE (< 300 ng/mL); Opiates Urine NEGATIVE (< 300 ng/mL); Oxycodone, Urine NEGATIVE (< 100 ng/mL); PCP Urine NEGATIVE (< 25 ng/mL); THC Urine NEGATIVE (< 50 ng/mL)
--- NOTE | 2025-01-12 23:45 | EDS_ITS ---
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 He states that he does methamphetamines and fentanyl. He states that he has used illicit drugs off and on for multiple years. He reports over the last month or so he has been using fentanyl multiple times a day. He states that he injects it. He reports he has been through detox before and has done well staying off the illicit drugs. He states has been a day or 2 since he has done any methamphetamine but reports he did fentanyl roughly 1 hour prior to arrival. He states that he used the fentanyl because he was trying to stop the illicit substance but was developing withdrawal symptoms and therefore took it to curb those. He states he has desire for placement in detox and therefore comes in for evaluation. [facility] Medical History Former smoker History of steroid therapy History of hepatitis C Injury of head and neck Migraine headache Gastric reflux Hx of psychiatric care (~2012) Home Medications ?Medication ?Instructions ?Recorded ?Last Taken ?Type NK 10/08/24 Unknown History Allergy/AdvReac Type Severity Reaction Status Date / Time No Known Allergies Allergy Verified 01/12/25 21:31 Surgical History H/O splenectomy (~1990) Hx of hernia repair (~2018) Social History household members: none Smoking Status: Current every day smoker tobacco type: cigarettes and e- cigarettes alcohol intake: former substance use type: amphetamines and opiates ROS ROS ED Constitutional Constitutional ED: Denies chills or fever(s) ENT ENT ED: Denies sore throat Cardiovascular Cardiovascular: Denies chest pain Respiratory/Chest Respiratory/Chest: Denies cough or dyspnea Gastrointestinal Gastrointestinal: Denies abdominal pain, diarrhea, nausea or vomiting Genitourinary Genitourinary ED: Denies dysuria Musculoskeletal Musculoskeletal: Denies myalgias Integumentary Denies rash Neurologic Neurologic: Denies headache(s) Hematologic/Lymphatic Hematologic/Lymphatic: Denies easy bleeding or easy bruising EXAM Physical Exam Const Vital Signs: 01/12/25 21:31 01/12/25 22:31 Temperature 96.2 F L Temperature Source Temporal Pulse Rate 88 65 Respiratory Rate 15 18 Blood Pressure 138/85 H 110/79 Blood Pressure Mean 102 89 Pulse Ox 98 99 Oxygen Delivery Method Room Air Room Air Positive well nourished and well developed General Appearance ED: well developed; Negative for pallor HEENT HEENT Narrative: Normocephalic atraumatic Eyes PERRL and EOMs intact bilaterally General Eye ED: Negative for scleral icterus Neck supple Neck Narrative: No nuchal rigidity or meningeal signs Resp normal respiratory effort and clear to auscultation bilaterally Cardio regular rate and regular rhythm Rate: other Other Details: Heart is regular rate and rhythm without murmurs rubs or gallops Radial and carotid pulses are equal and symmetric GI non-tender, non-distended and no masses GI Narrative: Abdomen is soft nontender nondistended with hypoactive bowel sounds. No voluntary guarding or rigidity or pulsatile mass Auscultation: hypoactive bowel sounds Palpation: soft Extremity Extremity Narrative: Patient has track andersen in the right antecubital region consistent with a history of IV drug abuse. There are no surrounding secondary changes to suggest infection. No splinter hemorrhages or Janeway lesions noted All compartments are soft and compressible going against compartment syndrome Neuro oriented x3, CN's II-XII intact bilaterally and no sensory deficits noted Sensorium / Orientation: alert Motor Exam: strength 5/5 throughout Psych mental status grossly normal Skin Skin Narrative: Track andersen in the right upper extremity consistent with IV drug abuse without secondary infection General Skin Exam: Negative for jaundice or pallor MDM MDM MDM Narrative Medical decision making narrative: Patient arrived to the ER overall stable vitals. He reported that he has a history of methamphetamine and IV fentanyl abuse. He is seeking detoxification. Secondary to this a medical screening exam was performed. Labs revealed no clinically significant findings such as acute kidney injury acute blood loss anemia electrolyte abnormality or signs of secondary infection. He is positive for fentanyl which correlates with his history. While waiting for the hospitalist to return his page to discuss admission to detox the patient decided he no longer wanted placement and eloped from the hospital. History & Record Review Discussion w/independent historian: Patient Lab Data Attestation: I reviewed the patient's lab results. Labs: Laboratory Results - last 24 hr 01/12/25 01/12/25 22:40 22:56 WBC 5.7 RBC 3.75 L Hgb 12.3 L Hct 35.8 L MCV 95.5 H MCH 32.8 H MCHC 34.4 RDW Std Deviation 44.9 H RDW Coeff of Jordan 12.8 Plt Count 185 MPV 8.2 Immature Gran % (Auto) 0.200 Neut % (Auto) 54.2 Lymph % (Auto) 33.9 [place] % (Auto) 7.5 Eos % (Auto) 3.7 Baso % (Auto) 0.5 Absolute Neuts (auto) 3.1 Absolute Lymphs (auto) 1.94 Nucleated RBC % 0 Sodium 139 Potassium 4.1 Chloride 106 Carbon Dioxide 24.8 Anion Gap 9 BUN 7 Creatinine 0.90 Estim Creat Clear Calc 113.88 Est GFR (MDRD) Non-Af 109 BUN/Creatinine Ratio 8.3 L Glucose 102 H Calcium 8.7 Total Bilirubin 0.28 AST 17 ALT 9 Alkaline Phosphatase 74 Total Protein 5.9 Albumin 3.7 Globulin 2.2 Albumin/Globulin Ratio 1.7 Urine Opiates Screen NEGATIVE U Buprenorphine Qual NEGATIVE Ur Oxycodone Screen NEGATIVE Urine Methadone Screen NEGATIVE Urine Fentanyl Screen PRESUMPTIVE POSITIVE Ur Barbiturates Screen NEGATIVE Ur Phencyclidine Scrn NEGATIVE Ur Amphetamines Screen PRESUMPTIVE POSITIVE U Benzodiazepines Scrn NEGATIVE Urine Cocaine Screen PRESUMPTIVE POSITIVE U Cannabinoids Screen NEGATIVE Ethyl Alcohol < 10.1 Discharge Plan Triage Chief Complaint: Substance Abuse ED Provider: Milton Orozco Dx/Rx/DC Orders Clinical Impression: Polysubstance abuse, S/P cervical spinal fusion Prescriptions: No Action NK Primary Care Provider: Hermann Hernandez Referrals: Hermann Hernandez MD [Primary Care Provider] - Print Language: Italian Disposition Disposition: Elopement Discharge Date/Time: 01/12/25 23:53
--- NOTE | 2025-01-12 23:51 | ED.RN ---
pt seen leaving department. This RN asked if patient wanted to stay and be admitted for detox. Pt stated, Nah, I'm good and left department. Dr. Orozco made aware
== END 2025-01-12 23:53 | disposition left against medical advice (07) ==
PROVIDERS: Emergency Provider Emergency Medicine; PCP Family Medicine; Visit Provider Emergency Medicine
DX: F19.19 Other psychoactive substance abuse with unspecified psychoactive substance-induced disorder (principal); F17.210 Nicotine dependence, cigarettes, uncomplicated; F17.290 Nicotine dependence, other tobacco product, uncomplicated; Z98.1 Arthrodesis status
CPT/HCPCS: 36415; 80053; 80307; 82077; 85025; 99282

== ENCOUNTER 2025-02-14 04:20 | Emergency (ER) | payer MEDICAID, SELFPAY ==
[2025-02-14 04:21] VITALS: BP 136/91; PULSE 107; RESP 16; TEMP 36.5; O2SAT 99; BMI 23.6
[2025-02-14 05:17] VITALS: BP 134/84; PULSE 89; RESP 20; O2SAT 100
[2025-02-14 05:23] VITALS: BP 137/92; PULSE 89; RESP 16; TEMP 36.6; O2SAT 98
[2025-02-14 05:26] LABS: Absolute Lymphocyte Count 1.36 X10^3/uL (0.83-4.51); Absolute Neutrophil Count 3.4 X10^3/uL (2.0-7.7); Basophil# 0.01 X10^3/uL; Basophil% 0.2 % (0-1); Eosinophils% 1.9 % (0-5); Hematocrit 40.2 % (40-54); Hemoglobin 13.8 g/dL (13.0-16.5); Lymphocyte # 1.36 X10^3/ul (0.83-4.51); Lymphocyte % 26.1 % (19-41); Mean Corp Hgb Conc 34.3 g/dL (32-36); Mean Corpuscular Hgb 33.2 pg (27.0-32.0); Mean Corpuscular Volume 96.6 fL (80-94); Mean Platelet Vol. 9.1 fl (6.2-12.0); Monocyte# 0.29 X10^3/uL; Monocyte% 5.6 % (0-10); NRBC Flagged by Analyzer 0 % (0-5); Neutrophil # 3.43 X10^3/uL (2.7-7.7); Neutrophil % 65.8 % (47-70); Platelet Count 203 K/mm3 (150-450); RBC Distribution Width CV 13.6 % (11.6-14.6); RBC Distribution Width SD 48.2 fl (35.1-43.9); Red Blood Count 4.16 M/mm3 (4.6-6.2); White Blood Count 5.2 K/mm3 (4.4-11.0)
[2025-02-14 05:44] LABS: ALB/GLOB Ratio 1.7 RATIO (0.9-2.4); AST(SGOT) 26 U/L (<=37); Alanine Aminotransfer ALT/SGPT 17 U/L (<=46); Albumin, Serum 4.2 g/dL (3.5-5.0); Alcohol, Blood (Medical)-Serum < 10.1 mg/dL (<=10.0); Alkaline Phosphatase 82 U/L (40-129); Anion Gap 12 (5-15); BUN 8 mg/dL (4-19); BUN/Creat Ratio 6.2 RATIO (10-20); Calcium,Total 9.2 mg/dL (7.6-11.0); Carbon Dioxide 26.1 mmol/L (21.0-32.0); Chloride 102 mmol/L (98-108); Creatinine, Serum 1.29 mg/dL (0.70-1.20); EST Glomerular Filtration Rate 71 (>60); Estimated Creatinine Clearance 79.45 ml/min (50-250); Globulin 2.5 g/dL (2.2-4.2); Glucose 184 mg/dL (70-99); Potassium 4.2 mmol/L (3.3-5.1); Protein, Total 6.7 g/dL (5.9-8.4); Sodium Level 140 mmol/L (133-145); Total Bilirubin 0.47 mg/dL (0.00-1.30)
--- NOTE | 2025-02-14 05:52 | EX.ED.DYSGE1 ---
HPI History of Present Illness Chief Complaint: Overdose Informant: patient and EMS Narrative Narrative: Patient is a 44-year-old male with past medical history of hepatitis C and opioid abuse. He states he has used opioids off and on for multiple years. He states that he typically will inject heroin or fentanyl secondary to his addiction. Reported this evening the patient was found unresponsive in a gas station bathroom. EMS reports that he was not pulseless nor apneic but was unresponsive and had minimal respirations and was starting to turn cyanotic. They report they gave him 8 mg of Narcan and he awoke and had improvement of his symptoms. Upon arrival to the ER the patient does admit to using opioids prior to the event. He states he did it simply to get high and denies any intent of self-harm. He denies any other ingestion. [facility] Medical History Former smoker History of steroid therapy History of hepatitis C Injury of head and neck Migraine headache Gastric reflux Hx of psychiatric care (~2012) Home Medications ?Medication ?Instructions ?Recorded ?Last Taken ?Type NK 10/08/24 Unknown History Allergy/AdvReac Type Severity Reaction Status Date / Time No Known Allergies Allergy Verified 02/14/25 04:27 Surgical History H/O splenectomy (~1990) Hx of hernia repair (~2018) Social History household members: none Smoking Status: Current every day smoker tobacco type: cigarettes and e-cigarettes alcohol intake: former substance use type: amphetamines and opiates ROS ROS ED Constitutional Constitutional ED: Denies chills or fever(s) Eyes Eyes: Denies blurry vision or change in vision ENT ENT ED: Denies sore throat Cardiovascular Cardiovascular: Reports other Details: Positive left chest wall pain ; Denies chest pain Respiratory/Chest Respiratory/Chest: Denies cough or dyspnea Gastrointestinal Gastrointestinal: Denies abdominal pain, diarrhea, nausea or vomiting Musculoskeletal Musculoskeletal: Denies back pain or neck pain Integumentary Denies Abrasions or rash Neurologic Neurologic: Denies headache(s) Hematologic/Lymphatic Hematologic/Lymphatic: Denies easy bleeding or easy bruising EXAM Physical Exam Const Vital Signs: 02/14/25 04:21 06/17/25 05:17 02/14/25 05:23 Temperature 97.7 F L 97.8 F Temperature Source Temporal Pulse Rate 107 H 89 92 Respiratory Rate 16 20 H 20 H Blood Pressure 136/91 H 134/84 H 134/84 H Blood Pressure Mean 106 100 100 Pulse Ox 99 100 98 Oxygen Delivery Method Room Air Room Air 02/14/25 06:00 Temperature Temperature Source Pulse Rate 90 Respiratory Rate 16 Blood Pressure 134/91 H Blood Pressure Mean 105 Pulse Ox 98 Oxygen Delivery Method Room Air Positive well nourished and well developed General Appearance ED: well developed HEENT HEENT Narrative: Normocephalic atraumatic No tongue or cheek biting to suggest seizure activity Eyes EOMs intact bilaterally Eyes Narrative: Pupils are actually dilated and sluggish to respond General Eye ED: Negative for scleral icterus Neck supple Neck Narrative: No nuchal rigidity or meningeal signs Chest Wall Chest Narrative: There is pain on palpation along the left anterior lateral chest wall rib regions 4-6 without bony deformity or crepitance Resp normal respiratory effort and clear to auscultation bilaterally Resp Narrative: Breath sounds are slight diminished throughout but overall clear to auscultation without signs of respiratory distress or aspiration Cardio regular rate and regular rhythm GI non-tender, non-distended and no masses Auscultation: hypoactive bowel sounds Palpation: soft Extremity normal to inspection Neuro oriented x3, CN's II-XII intact bilaterally and no sensory deficits noted Sensorium / Orientation: alert Motor Exam: strength 5/5 throughout Psych mental status grossly normal Skin Skin Narrative: Track andersen in place in the right antecubital region without secondary findings to suggest infection MDM MDM MDM Narrative Medical decision making narrative: Patient was found minimally responsive with respiratory depression and responded to Narcan indicating opioid overdose. The patient did confirm injecting opioids and states he does not on a regular basis. He denied doing it secondary to to self-harm and therefore there is no need for a psychiatric workup. We discussed potential admission for detox and he states that he is ready to undergo rehabilitation based on the events that occurred this evening. Therefore basic labs were obtained. As he had left-sided chest wall pain there was concern for rib fracture and there is also concern for aspiration so a rib series with 1 view chest was ordered. This showed no sign of aspiration but did show 7th potential rib fracture. However there is no associated pneumothorax or pulmonary contusion and he is not requiring supplemental oxygen so therefore there is no need for intervention. The patient was initially admitted to the ramp program but then changed his mind and states that he has allegations that he needs to fill before he can discuss potential placement. As he is not homicidal or suicidal and is not requiring supplemental oxygen or showing signs of aspiration there is no need for further intervention and patient is otherwise safe for discharge. History & Record Review Discussion w/independent historian: EMS personnel and Patient Lab Data Attestation: I reviewed the patient's lab results. Labs: Laboratory Results - last 24 hr 02/14/25 04:29 WBC 5.2 RBC 4.16 L Hgb 13.8 Hct 40.2 MCV 96.6 H MCH 33.2 H MCHC 34.3 RDW Std Deviation 48.2 H RDW Coeff of [place] 13.6 Plt Count 203 MPV 9.1 Immature Gran % (Auto) 0.400 Neut % (Auto) 65.8 Lymph % (Auto) 26.1 [place] % (Auto) 5.6 Eos % (Auto) 1.9 Baso % (Auto) 0.2 Absolute Neuts (auto) 3.4 Absolute Lymphs (auto) 1.36 Nucleated RBC % 0 Sodium 140 Potassium 4.2 Chloride 102 Carbon Dioxide 26.1 Anion Gap 12 BUN 8 Creatinine 1.29 H Estim Creat Clear Calc 79.45 Est GFR (MDRD) Non-Af 71 BUN/Creatinine Ratio 6.2 L Glucose 184 H Calcium 9.2 Total Bilirubin 0.47 AST 26 ALT 17 Alkaline Phosphatase 82 Total Protein 6.7 Albumin 4.2 Globulin 2.5 Albumin/Globulin Ratio 1.7 Ethyl Alcohol < 10.1 Radiography Diagnostic Testing: Clinical Impression(s) from Imaging Studies Ribs w/Chest X-Ray 02/14/25 06:35 IMPRESSION: Suspected acute nondisplaced cortical fracture of the axillary portion of the left 7th rib. Reading Location[facility] Left rib series with 1 view chest as interpreted by the emergency medicine physician question for left seventh rib fracture without pneumothorax or infiltrate Discharge Plan Triage Chief Complaint: Overdose ED Provider: Milton Orozco Dx/Rx/DC Orders Clinical Impression: Opioid abuse, Opioid overdose, Left rib fracture Instructions: Addiction: Getting Help, ED Opiate Abuse Prescriptions: No Action NK Primary Care Provider: Hermann Hernandez Referrals: Hermann Hernandez MD [Primary Care Provider] - Print Language: Burundian Disposition Disposition: Home, Self Care Discharge Date/Time: 02/14/25 06:53
[2025-02-14 06:00] VITALS: BP 134/91; PULSE 90; RESP 16; O2SAT 98
--- NOTE | 2025-02-14 06:35 | RAD_ITS ---
PROCEDURE: RIBS UNI MIN 3V W/PA CHEST 02/14/2025 REASON FOR EXAM: PAIN TECHNIQUE: RIBS UNI MIN 3V W/PA CHEST COMPARISON: None. FINDINGS: Suspected acute nondisplaced cortical fracture of the axillary portion of the left 7th rib. The lungs are expanded. There is no demonstrated parenchymal abnormality. There is no demonstrated pleural abnormality. Normal heart and pericardium. Normal mediastinum and fern. Normal visualized pulmonary arteries. Normal visualized aortic arch and descending thoracic aorta. Normal visualized thoracic spine. Normal remaining visualized ribs, clavicles, and shoulders. There is no demonstrated abnormality of the visualized soft tissue structures of the upper abdomen. RAD/Ribs Uni Min 3V w/PA Chest IMPRESSION: Suspected acute nondisplaced cortical fracture of the axillary portion of the l eft 7th rib. Reading Location: [facility]
--- NOTE | 2025-02-14 06:52 | ED.RN ---
Pt refused to sign [facility] contract and wants to be discharged home. Girlfriend at bedside. Dr. Orozco made aware.
== END 2025-02-14 06:53 | disposition home or self-care (01) ==
PROVIDERS: Emergency Provider Emergency Medicine; PCP Family Medicine; Visit Provider Emergency Medicine
DX: T40.2X1A Poisoning by other opioids, accidental (unintentional), initial encounter (principal); F11.10 Opioid abuse, uncomplicated; S22.39XA Fracture of one rib, unspecified side, initial encounter for closed fracture; F17.210 Nicotine dependence, cigarettes, uncomplicated; F17.290 Nicotine dependence, other tobacco product, uncomplicated
CPT/HCPCS: 71101; 80053; 82077; 85025; 99285